=== PATIENT | female | born 1985 | race Caucasian/White ===

== ENCOUNTER 2020-02-19 12:18 | Emergency (ER) | payer MEDICAID, SELFPAY ==
[2020-02-19 12:20] VITALS: BP 143/86; PULSE 101; RESP 18; TEMP 36.4; O2SAT 96; BMI 40.1
--- NOTE | 2020-02-19 13:15 | RAD_ITS ---
STUDY: X-RAY - RIGHT KNEE REASON FOR EXAM: Female, 34 years old. right knee pain. heard pop and pain got worse TECHNIQUE: 4 view(s) of the knee. COMPARISON: None. FINDINGS: No acute fracture, dislocation or osseous destruction. Small quadriceps tendon enthesophyte. Minimal swelling. No significant joint effusion. RAD/Knee 4 or More Views IMPRESSION: Right knee acutely intact Minimal degenerative features Minimal swelling Electronically Signed: Jori Qureshi DO at 14:37 EDT Tel , Service support ,
--- NOTE | 2020-02-19 14:15 | ED.VISSUMM ---
- ER Visit Summary Date of Service: 02/19/20 Chief Complaint: Right knee pain History of Present Illness: The patient is a 34 F who presents with right knee pain that is been getting worse over the past 3 days. Patient states she felt a pop while she was walking up stairs. Patient states the pain is been getting progressively worse. Patient describes the pain as aching. Patient states nothing makes it better or worse. Patient denies any paresthesias or weakness. Patient denies any fevers or chills. Patient denies any other injuries. Patient states she has had surgery on both knees and an arthroscopy on her right knee in the past. Physical Examination: Vital signs are stable. Patient is afebrile. Patient is in no acute distress. Musculoskeletal exam reveals diffuse tenderness around the right knee. There is no effusion. There is no bony crepitance or step-off. There is no deformity noted. Range of motion was from 0 to 60 degrees without difficulty. There is pain with flexion past 60 degrees. There is no laxity appreciated. Varus and valgus stress tests were negative. Milad's test was negative. Pedal pulses are equal bilaterally. There are no sensory deficits noted. There is no calf tenderness or edema. Test Results: X-rays of the right knee were obtained. There is no acute fracture or dislocation. There is no effusion. These were interpreted by myself and the radiologist. Emergency Department Course and Treatment: Patient was instructed to ice and elevate the right knee. Patient was given a knee immobilizer. Patient was instructed to take Tylenol or ibuprofen as needed for pain. Patient was instructed to follow-up with her primary care physician in 5 to 7 days. Patient understood and was agreeable with the plan. All questions were answered. Disposition: Discharge home Impression: 1. Right knee sprain This note was generated with [employer] dictation software. It may contain incorrect words, spelling, and punctuation that were not noted in review of the chart prior to signing ED Disposition - Plan for ED Patient: Disposition: Home or Assisted Living Diagnosis: Right knee sprain Instructions: ED Sprain Knee Referrals: Alberto Meier MD [NON-STAFF] - 5-7 Days
[2020-02-19 14:56] VITALS: BP 140/62; PULSE 74; RESP 15; O2SAT 97
== END 2020-02-19 14:57 | disposition home or self-care (01) ==
PROVIDERS: Emergency Provider Emergency Medicine
DX: S83.91XA Sprain of unspecified site of right knee, initial encounter (principal); X58.XXXA Exposure to other specified factors, initial encounter; Y93.01 Activity, walking, marching and hiking; Y92.89 Other specified places as the place of occurrence of the external cause; Y99.9 Unspecified external cause status; I10 Essential (primary) hypertension; F17.210 Nicotine dependence, cigarettes, uncomplicated
CPT/HCPCS: 73564; 99282

== ENCOUNTER 2020-05-11 10:57 | Emergency (ER) | payer MEDICAID, SELFPAY ==
[2020-05-11 10:59] VITALS: BP 148/83; PULSE 78; RESP 17; TEMP 36.3; O2SAT 99; BMI 43.0
--- NOTE | 2020-05-11 11:29 | ED.VIS.GEN ---
History of Present Illness Chief Complaint: Abd Pain Narrative: 34-year-old female presenting with nausea/vomiting/diarrhea/chills and cough. Patient states her symptoms started last evening. 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 She states she does not have a significant health history. She is not having shortness of breath. She has been holding down some fluids and making urine. She is concerned about the profuse diarrhea. There is no black or blood in the stool. Past Medical History - Allergies and Home Meds Allergies/Adverse Reactions: Allergies amoxicillin [Amoxicillin] Allergy (Verified 05/11/20 10:59) Hives amoxicillin trihydrate [From Trimox] Allergy (Verified 05/11/20 10:59) Rash codeine Allergy (Verified 05/11/20 10:59) Itching Penicillins [PCN] Allergy (Verified 05/11/20 10:59) Hives phenazopyridine HCl [From Pyridium] Allergy (Verified 05/11/20 10:59) Other Sulfa (Sulfonamide Antibiotics) Allergy (Verified 05/11/20 10:59) Hives gabapentin [From Neurontin] Adverse Reaction (Verified 05/11/20 10:59) Vomiting hydrochlorothiazide Adverse Reaction (Verified 05/11/20 10:59) Hives Primary Care Physician: [facility],Out of [NON-STAFF] - Past Medical History: - - Noncontributory Surgical History: noncontributory Lives: Alone Smoking Status: Current every day smoker Alcohol: None Drugs: None Review of Systems General: Reports: Chills, Fever. Denies: Sweats Eyes: Denies: Visual changes - bilaterally, Diplopia ENT: Reports: Rhinorrhea, Sore throat Cardiovascular: Denies: Chest pain, Palpitations Respiratory: Reports: Cough. Denies: Dyspnea Gastrointestinal: Reports: Abdominal pain, Nausea, Vomiting, Diarrhea Genitourinary: Denies: Dysuria, Hematuria Musculoskeletal: Reports: Myalgias. Denies: Arthralgias, Neck pain Skin: Denies: Rash, Abscess Neurological: Denies: Headache, Weakness Physical Exam Vital Signs/Narrative: Vital Signs Temp Pulse Resp BP Pulse Ox 05/11/20 10:59 97.3 F L 78 17 148/83 H 99 Diagnostic/Tx/Re-eval - Medical Decision Making Patient presents with nausea, vomiting, diarrhea, cough and fever at home. Her vital signs are stable and she is afebrile. Her physical exam is benign. She is nontoxic-appearing. She was given Zofran in the emergency department and felt improved. She was tested for COVID?19. She is given home quarantine precautions as well as return precautions. She was amenable to this plan. Patient stable for discharge. Impression: 1. Vomiting 2. Diarrhea 3. Viral syndrome ED Disposition - Plan for ED Patient: Disposition: Home or Assisted Living Instructions: ED Viral Syndrome Prescriptions: Famotidine [Pepcid] 20 mg PO BID #14 tab Prescription Printed Ondansetron [Zofran Odt] 4 mg PO Q8H PRN PRN #20 tab PRN Reason: Nausea Prescription Printed Referrals: [facility],Out of [NON-STAFF] -
[2020-05-11 12:10] VITALS: BP 127/63; PULSE 74; RESP 16; O2SAT 98
[2020-05-11] MEDS: Ondansetron ODT 4 MG Tablet 8 MG PO (12:14)
== END 2020-05-11 12:14 | disposition home or self-care (01) ==
LOC: ED 11:38
PROVIDERS: Emergency Provider Student in an Organized Health Care Education/Training Program
DX: B34.9 Viral infection, unspecified (principal); R19.7 Diarrhea, unspecified; R11.2 Nausea with vomiting, unspecified; F17.200 Nicotine dependence, unspecified, uncomplicated; Z88.0 Allergy status to penicillin; Z88.2 Allergy status to sulfonamides; Z88.8 Allergy status to other drugs, medicaments and biological substances
CPT/HCPCS: 87635; 99283; C9803; U0003

== ENCOUNTER 2021-08-06 07:47 | Emergency (ER) | payer MEDICAID, SELFPAY ==
[2021-08-06 07:49] VITALS: BP 183/111; PULSE 89; RESP 16; TEMP 36.6; O2SAT 99; BMI 30.7
--- NOTE | 2021-08-06 08:00 | EDS_ITS ---
HPI History of Present Illness Chief Complaint: Lower Extremity Injury Informant: patient Occured/Mechanism Mechanism/Context: Yes injury Onset/Context/Timing Onset: Weeks Context: Sudden Onset Timing: Continuous Quality of Pain: Sharp Current Severity: Mild Maximum Severity: Moderate Associated Symptoms Associated Symptoms: Negative for Parasthesia, Weakness and Loss of Funtion Narrative Narrative: 36-year-old female history of left knee problems had a prior lateral release years ago. States she fell 2 to 3 weeks ago has had knee pain since t hat time. She bought an [id number] brace at a [employer] store and is just having more pain. Says it feels like it is popping and grinding. Denies any other complaints. Prior similar symptoms: Yes Recent Illness/Hospitalization: No PFSH PFSH Home Medications metoprolol tartrate 50 mg PO BID 02/19/20 [History Last Taken Unknown] famotidine 20 mg PO BID #14 tab 05/11/20 [Rx Last Taken Unknown] ondansetron 4 mg PO Q8H PRN PRN #20 tab 05/11/20 [Rx Last Taken Unknown] Allergy/AdvReac Type Severity Reaction Status Date / Time amoxicillin [Amoxicillin] Allergy Hives Verified 08/06/21 07:48 amoxicillin trihydrate Allergy Rash Verified 08/06/21 07:48 [From Trimox] codeine Allergy Itching Verified 08/06/21 07:48 Penicillins [PCN] Allergy Hives Verified 08/06/21 07:48 phenazopyridine HCl Allergy Other Verified 08/06/21 07:48 [From Pyridium] Sulfa (Sulfonamide Allergy Hives Verified 08/06/21 07:48 Antibiotics) doxycycline AdvReac Vomiting Verified 08/06/21 07:51 gabapentin [From Neurontin] AdvReac Vomiting Verified 08/06/21 07:48 hydrochlorothiazide AdvReac Hives Verified 08/06/21 07:48 titanium AdvReac Rash Verified 08/06/21 07:48 Social History Smoking Status: Current every day smoker tobacco type: cigarettes ROS ROS ED ROS Narrative Denies recent illness. Review of Systems ROS Unobtainable: Denies due to encephalopathy Constitutional Constitutional ED: Denies fever(s) Eyes Eyes: Denies change in vision ENT ENT ED: Denies ear pain Cardiovascular Cardiovascular: Denies chest pain Respiratory/Chest Respiratory/Chest: Denies dyspnea Gastrointestinal Gastrointestinal: Denies abdominal pain, nausea or vomiting Genitourinary Genitourinary ED: Denies dysuria Musculoskeletal Musculoskeletal: Denies myalgias Integumentary Denies rash Neurologic Neurologic: Denies headache(s) Psychiatric Psychiatric: Denies depression Endocrine Endocrinology: Denies polyuria Hematologic/Lymphatic Hematologic/Lymphatic: Denies easy bruising Allergic/Immunologic Allergic/Immunologic ED: Denies urticaria EXAM Physical Exam Narrative Exam Narrative: 36-year-old female no acute distress. Vital signs stable afebrile. HEENT exam unremarkable. Lungs are clear. Heart regular rate and rhythm no murmur. Rate about 90. Chest wall nontender. Abdomen soft nontender. Pelvic girdle intact. She is able to flex and extend both hips. Ankles and feet. Left knee is mildly swollen. Anteriorly tender on the inferior aspect. No gross bony deformity. No redness or warmth. There is some irritation to the skin from the brace. No cellulitis. ACL, PCL, MCL and LCL appear to be intact. She is tenderness along the medial aspect of her left knee. She is able do a full extension lift her leg off the bed extensor mechanism is intact. She can do flexion but has more discomfort with flexion but she can get up to almost 90 degrees. Const Vital Signs: 08/06/21 07:49 Temperature 97.8 F Temperature Source Temporal Pulse Rate 89 Respiratory Rate 16 Blood Pressure 183/111 H Blood Pressure Mean 135 Pulse Ox 99 Oxygen Delivery Method Room Air Positive well nourished, well developed and obese; Negative for cachectic, contractures or unkempt General Appearance ED: well developed and NAD; Negative for unkempt, cachectic or contractures Nutritional Appearance: obese; Negative for cachectic HEENT Reports moist mucous membranes normocephalic and atraumatic; Negative for trauma or tenderness Eyes PERRL Neck full ROM and supple Chest Wall inspection of chest normal and palpation of chest normal Resp normal respiratory effort, no retractions and clear to auscultation bilaterally Auscultation: Negative for rales, rhonchi or wheezes Cardio regular rate, regular rhythm, S1 normal heart sound, S2 normal heart sound and no murmurs GI non-tender, non-distended and no masses Auscultation: normoactive bowel sounds Palpation: soft; Negative for tender or guarding Back/Spine no CVA tenderness General Back: Negative for CVA tenderness Extremity Extremity Narrative: Left knee tenderness. Mild swelling. Redness from irritation from the brace. Ligaments are intact. No bony deformity. Full extension 180 degrees. Is able to do flexion but discomfort with flexion. Neuro oriented x3 Sensorium / Orientation: alert, oriented to person, oriented to place and oriented to time; Negative for orientation impaired, confused, lethargic or stuporous Motor Exam: strength 5/5 throughout Psych mental status grossly normal Appearance: Negative for unkempt Skin no wounds Lesions: no lesions Rashes: no rashes MDM MDM MDM Narrative Medical decision making narrative: X-ray left knee. And [place] for pain here. Repeat exam at 9:25 AM unchanged. Patient I went over x-ray results. She has a follow-up appointment with her orthopedic physician at [facility] September 01. He is done surgery on her other knee. Radiography Diagnostic Testing: Clinical Impression(s) from Imaging Studies Knee X-Ray 08/06/21 08:11 IMPRESSION: Degenerative arthrosis. Electronically Signed: Zafar Gibson MD at 8:33 EST , Service support , Left knee x-ray 4 views interpreted by myself and the radiologist. Shows no acute abnormality. There is joint space narrowing on the medial aspect of the left knee. Patient I went over her films. Discharge Plan Triage Chief Complaint: Lower Extremity Injury ED Provider: Matthew Kennedy Dx/Rx/DC Orders Clinical Impression: Knee sprain, Degenerative arthritis of left knee Instructions: ED Knee Sprain, ED Osteoarthritis Prescriptions: No Action metoprolol tartrate 50 MG tablet 50 mg PO BID RF: 0 famotidine 20 MG tablet 20 mg PO BID Qty: 14 RF: 0 ondansetron 4 MG tablet 4 mg PO Q8H PRN PRN (Reason: Nausea) Qty: 20 RF: 0 Referrals: BRITTANY DANIELS [Other] Activity Restrictions/Additional Instructions: Ice and elevate your left knee to decrease pain and swelling. Motrin and Tylenol for pain. Follow-up with your orthopedic physician stay with a scheduled appointment. Increase activity as tolerated. Disposition Disposition: Home, Self Care
[2021-08-06] MEDS: HYDROcodone Bitartrate/Apap 5/325 Tablet PO (08:03)
--- NOTE | 2021-08-06 08:11 | RAD_ITS ---
STUDY: X-RAY - LEFT KNEE REASON FOR EXAM: Female, 36 years old. Patient fell 3 weeks ago with continued pain and swelling. TECHNIQUE: 4 view(s) of the knee. COMPARISON: None. FINDINGS: Normal visualized distal femur. Normal visualized proximal tibia and fibula. Normal proximal tibiofibular articulation. There is mild degenerative arthrosis of the medial femorotibial compartment. Normal lateral femorotibial compartment. There is mild degenerative arthrosis of the patellofemoral articulation. The soft tissue structures are unremarkable. RAD/Knee 4 or More Views IMPRESSION: Degenerative arthrosis. Electronically Signed: Zafar Gibson MD at 8:33 EST , Service support ,
[2021-08-06] MEDS: COVID-19 VACC, MRNA(PFIZER)/PF 30 MCG/0.3 ML SYRINGE IM (10:17)
[2021-08-06 10:22] VITALS: BP 138/81; PULSE 79; RESP 16; O2SAT 98
== END 2021-08-06 10:38 | disposition home or self-care (01) ==
PROVIDERS: Emergency Provider Emergency Medicine
DX: S83.92XA Sprain of unspecified site of left knee, initial encounter (principal); M17.12 Unilateral primary osteoarthritis, left knee; F17.210 Nicotine dependence, cigarettes, uncomplicated; Z79.899 Other long term (current) drug therapy; E66.9 Obesity, unspecified; W19.XXXA Unspecified fall, initial encounter; Y92.9 Unspecified place or not applicable; Y99.9 Unspecified external cause status; Z23 Encounter for immunization
CPT/HCPCS: 73564; 91300; 99282

== ENCOUNTER 2021-12-08 15:07 | Emergency (ER) | payer OTHER, MEDICAID, SELFPAY ==
[2021-12-08 15:08] VITALS: BP 167/107; PULSE 88; RESP 14; TEMP 36.5; O2SAT 99; BMI 41.7
--- NOTE | 2021-12-08 15:44 | EDS_ITS ---
HPI HPI - GI History of Present Illness Chief Complaint: Abd Pain Narrative Narrative: 36-year-old female presenting with nausea and vomiting which started yesterday. She states that she started having vomiting episodes and then started having epigastric pain. Patient reports that she has a history of a renal mass on the left and states that she was recently told after an MRI that she had a pancreatic mass. She has a scheduled appointment for urology and for GI at [facility] on the . Patient does have a history of hematuria as well. It is presumed she has renal cell carcinoma. She initially had a consult and they were going to monitor this but she wanted a second opinion. This is why she is following up with [facility]. Patient has not had fever, chills. She denies diarrhea or constipation. She has no vaginal complaints. PFSH PFSH Medical History (Updated 12/08/21 @ 16:15 by Aislinn Quintero) GERD (gastroesophageal reflux disease) Home Medications metoprolol tartrate 50 mg PO BID 02/19/20 [History Last Taken Unknown] famotidine 20 mg PO BID #14 tab 05/11/20 [Rx Last Taken Unknown] ondansetron 4 mg PO Q8H PRN PRN #20 tab 05/11/20 [Rx Last Taken Unknown] pantoprazole [Protonix] 40 mg PO DAILY #30 tab 12/08/21 [Rx Last Taken Unknown] Allergy/AdvReac Type Severity Reaction Status Date / Time amoxicillin [Amoxicillin] Allergy Hives Verified 12/08/21 15:10 amoxicillin trihydrate Allergy Rash Verified 12/08/21 15:10 [From Trimox] codeine Allergy Itching Verified 12/08/21 15:10 Penicillins [PCN] Allergy Hives Verified 12/08/21 15:10 phenazopyridine HCl Allergy Other Verified 12/08/21 15:10 [From Pyridium] Sulfa (Sulfonamide Allergy Hives Verified 12/08/21 15:10 Antibiotics) doxycycline AdvReac Vomiting Verified 12/08/21 15:10 gabapentin [From Neurontin] AdvReac Vomiting Verified 12/08/21 15:10 hydrochlorothiazide AdvReac Hives Verified 12/08/21 15:10 titanium AdvReac Rash Verified 12/08/21 15:10 Surgical History (Updated 12/08/21 @ 16:54 by Aislinn Quintero) H/O: hysterectomy History of back surgery Social History Smoking Status: Current every day smoker tobacco type: cigarettes ROS ROS ED Constitutional Constitutional ED: Denies chills or fever(s) ENT ENT ED: Denies rhinorrhea or sore throat Cardiovascular Cardiovascular: Denies chest pain or palpitations Respiratory/Chest Respiratory/Chest: Denies cough or dyspnea Gastrointestinal Gastrointestinal: Reports abdominal pain, nausea and vomiting; Denies constipation or diarrhea Genitourinary Genitourinary ED: Reports hematuria; Denies dysuria Musculoskeletal Musculoskeletal: Denies arthralgias or myalgias Integumentary Denies rash Neurologic Neurologic: Denies headache(s), paresthesias or weakness Psychiatric Psychiatric: Denies anxiety or depression EXAM Physical Exam Const Vital Signs: 12/08/21 15:08 Temperature 97.7 F L Temperature Source Temporal Pulse Rate 88 Respiratory Rate 14 Blood Pressure 167/107 H Blood Pressure Mean 127 Pulse Ox 99 Oxygen Delivery Method Room Air Positive well nourished and obese General Appearance ED: NAD; Negative for pallor Nutritional Appearance: obese HEENT Reports moist mucous membranes normocephalic and atraumatic Eyes PERRL and EOMs intact bilaterally Resp normal respiratory effort and clear to auscultation bilaterally Cardio regular rate and regular rhythm GI Inspection: Negative for abdominal distention Palpation: tender epigastric Neuro CN's II-XII intact bilaterally and no sensory deficits noted Sensorium / Orientation: alert, oriented to person, oriented to place and oriented to time Motor Exam: strength 5/5 throughout Psych mental status grossly normal and thought process normal Skin General Skin Exam: Negative for jaundice or pallor MDM MDM MDM Narrative Medical decision making narrative: Patient given morphine and Zofran and did have improvement of her symptoms. I was able to review her MRI reading. Patient's had a 1.6 x 1.8 cm upper left renal mass concerning for renal cell carcinoma this was on 24 September. In the impression they do report cyst or IPMN recommended follow-up was once a year for 5 years. In the body of the read of the MRI they mention no masses. I obtained blood work and her CBC, CMP, lipase are all within normal limits. Coagulation studies are normal. Hemoglobin is actually higher than previous at 14.7. I suspect she likely had a Jaimee-Liu tear given the vomiting. Patient was typed and screened however she does not need blood transfusion. Urinalysis negative for infection. CT of the abdomen pelvis is read as no acute abdominal pathology and there are no interval changes. I discussed all the negative findings with the patient as well as the recent MRI. And trying to determine what was causing her vomiting she did report that the Protonix that was giving her via the IV she was out of. She reports eating spaghetti, lasagna, orange juice in the last 48 hours. It is possible this could be due to her acid reflux. She requests her prescription for Protonix. She has Zofran at home. I recommended that she still follow-up with her nephrology and GI consult on the . Patient is stable for discharge. Impression: 1. History of renal cell carcinoma 2. 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 Hematuria 4. Abdominal pain 5. Nausea/vomiting 6. GERD Lab Data Labs: Laboratory Results - last 24 hr 12/08/21 12/08/21 12/08/21 15:50 15:50 15:50 WBC 7.9 RBC 5.21 Hgb 14.7 Hct 46.6 MCV 89.4 MCH 28.2 MCHC 31.5 L RDW Std Deviation 49.0 H RDW Coeff of Darío 14.8 H Plt Count 364 MPV 10.2 Immature Gran % (Auto) 0.400 Neut % (Auto) 48.2 Lymph % (Auto) 38.5 [place] % (Auto) 10.1 H Eos % (Auto) 1.8 Baso % (Auto) 1.0 Absolute Neuts (auto) 3.8 Absolute Lymphs (auto) 3.02 Nucleated RBC % 0 PT 12.9 INR 1.0 Sodium 141 Potassium 3.9 Chloride 109 H Carbon Dioxide 29.0 Anion Gap 3 L BUN 17 Creatinine 0.92 Estim Creat Clear Calc 89.66 Est GFR (MDRD) Af Amer 87 Est GFR (MDRD) Non-Af 72 BUN/Creatinine Ratio 18.4 Glucose 83 Calcium 9.3 Lipase 146 Urine Color Urine Clarity Urine pH Ur Specific [place] Urine Protein Urine Glucose (UA) Urine Ketones Urine Occult Blood Urine Nitrite Urine Bilirubin Urine Urobilinogen Ur Leukocyte Esterase Blood Type Antibody Screen 12/08/21 12/08/21 15:50 17:15 WBC RBC Hgb Hct MCV MCH MCHC RDW Std Deviation RDW Coeff of [place] Plt Count MPV Immature Gran % (Auto) Neut % (Auto) Lymph % (Auto) [place] % (Auto) Eos % (Auto) Baso % (Auto) Absolute Neuts (auto) Absolute Lymphs (auto) Nucleated RBC % PT INR Sodium Potassium Chloride Carbon Dioxide Anion Gap BUN Creatinine Estim Creat Clear Calc Est GFR (MDRD) Af Amer Est GFR (MDRD) Non-Af BUN/Creatinine Ratio Glucose Calcium Lipase Urine Color Yellow Urine Clarity Clear Urine pH 7.0 Ur Specific [place] 1.010 Urine Protein 30 H Urine Glucose (UA) Normal Urine Ketones Negative Urine Occult Blood 10 H Urine Nitrite Negative Urine Bilirubin Negative Urine Urobilinogen Normal Ur Leukocyte Esterase Negative Blood Type A POSITIVE Antibody Screen NEGATIVE Radiography Diagnostic Testing: Clinical Impression(s) from Imaging Studies Abdomen/Pelvis CT 12/08/21 15:48 IMPRESSION: Fatty liver, no discrete lesion No free intraperitoneal fluid, air, or suspicious adenopathy No interval change Electronically Signed: Fahad Magallon MD at 17:09 EDT Reading Location ID and State: [address] [place] [address] , Service support , Discharge Plan Triage Chief Complaint: Abd Pain ED Provider: Brice Dunn Dx/Rx/DC Orders Instructions: ED Abdominal Pain Unkn Cause Fem, ED GERD (Adult) Prescriptions: New pantoprazole [Protonix] 40 mg tablet,delayed release (DR/EC) 40 mg PO DAILY Qty: 30 RF: 0 No Action metoprolol tartrate 50 MG tablet 50 mg PO BID RF: 0 famotidine 20 MG tablet 20 mg PO BID Qty: 14 RF: 0 ondansetron 4 MG tablet 4 mg PO Q8H PRN PRN (Reason: Nausea) Qty: 20 RF: 0 Referrals: BRITTANY DANIELS [Other] Disposition Disposition: Home, Self Care
--- NOTE | 2021-12-08 15:48 | CT_ITS ---
STUDY: CT ABDOMEN AND PELVIS WITH CONTRAST REASON FOR EXAM: Female, 36 years old. Epigastric pain RADIATION DOSAGE (If Supplied By Facility): CTDIvol = ( 20.55 ) mGy, DLP = ( 2439.42 ) mGycm TECHNIQUE: Transaxial images were obtained from the dome of the diaphragm to the symphysis pubis without oral contrast. IV 100mL Isovue-300 was administered. Sagittal and coronal images were reconstructed. Individualized dose optimization techniques were used for this CT. COMPARISON: 2013 FINDINGS: The visualized lung bases are unremarkable. The visualized portions of the heart are within normal limits. There is decreased attenuation of the liver consistent with steatosis. Normal gallbladder and extrahepatic biliary system. Normal spleen. Normal pancreas. Normal bilateral adrenal glands. Normal right kidney. Normal left kidney. Normal visualized stomach. Normal small intestine. Normal colon. There is non-visualization of the appendix. Normal abdominal aorta. Normal inferior vena cava. Normal retroperitoneum. Normal urinary bladder. Normal abdominal wall. Normal osseous structures. CT/Abdomen/Pelvis W IV Cont ONLY IMPRESSION: Fatty liver, no discrete lesion No free intraperitoneal fluid, air, or suspicious adenopathy No interval change Electronically Signed: Fahad Magallon MD at 17:09 EDT ,
[2021-12-08] MEDS: 0.9% Normal Saline 1,000 ML 1000 ML IV (16:07)
[2021-12-08] MEDS: Ondansetron 4 MG/2 ML Vial IV (16:07)
[2021-12-08] MEDS: Morphine 4 MG/ML Syringe IV (16:07)
[2021-12-08 16:10] LABS: Absolute Lymphocyte Count 3.02 X10^3/uL (0.83-4.51); Absolute Neutrophil Count 3.8 X10^3/uL (2.0-7.7); Basophil# 0.08 X10^3/uL; Eosinophil# 0.14 X10^3/uL; Eosinophils% 1.8 % (0-5); Hematocrit 46.6 % (37-47); Hemoglobin 14.7 g/dL (12.0-15.0); Lymphocyte # 3.02 X10^3/ul (0.83-4.51); Lymphocyte % 38.5 % (19-41); Mean Corp Hgb Conc 31.5 g/dL (32-36); Mean Corpuscular Hgb 28.2 pg (27.0-32.0); Mean Corpuscular Volume 89.4 fL (81-99); Mean Platelet Vol. 10.2 fl (6.2-12.0); Monocyte# 0.79 X10^3/uL; Monocyte% 10.1 % (0-10); NRBC Flagged by Analyzer 0 % (0-5); Neutrophil # 3.79 X10^3/uL (2.7-7.7); Neutrophil % 48.2 % (47-70); Platelet Count 364 K/mm3 (150-450); RBC Distribution Width CV 14.8 % (11.6-14.6); Red Blood Count 5.21 M/mm3 (4.2-5.4); White Blood Count 7.9 K/mm3 (4.4-11.0)
[2021-12-08 16:20] LABS: Anion Gap 3 (5-15); BUN 17 mg/dL (7-18); BUN/Creat Ratio 18.4 RATIO (10-20); Calcium,Total 9.3 mg/dL (8.5-10.1); Chloride 109 mmol/L (98-107); Creatinine, Serum 0.92 mg/dL (0.55-1.02); EST Glomerular Filtration Rate 72 mL/min (>60); Est Glom Filt Rate - Afr Amer 87 mL/min (>60); Estimated Creatinine Clearance 89.66 ml/min; Glucose 83 mg/dL (74-106); Lipase 146 U/L (73-393); Potassium 3.9 mmol/L (3.5-5.1); Sodium Level 141 mmol/L (136-145)
[2021-12-08 16:21] LABS: Prothrombin Time (Protime)PT. 12.9 SECONDS (11.7-14.9)
[2021-12-08 17:18] LABS: Mucous, Urine 0 SEEN /hpf (<or=2+); Red Blood Cells-Urine 0 SEEN /hpf (0-5); White Blood Cells 0 SEEN /hpf (0-5)
[2021-12-08 17:20] LABS: Color, Urine Yellow (Yellow); Glucose, Dipstick Normal (Normal); Ketone-Dipstick Negative (Negative); Leukocyte Esterase-Dipstick Negative /ul (Negative); Nitrite-Dipstick Negative (Negative); Occult Blood-Urine 10 /ul (Negative); Protein-Dipstick 30 mg/dl (Negative); Urine Bilirubin Dipstick Negative (Negative); Urine Clarity Clear (Clear); Urine Urobilinogen Normal (Normal)
[2021-12-08 17:44] LABS: Bacteria 1+ /hpf (None Seen); Squamous Epithelial Cells - UA 0-5 SEEN /hpf (5-10)
[2021-12-08 17:58] VITALS: BP 140/78; PULSE 97; RESP 16; O2SAT 99
== END 2021-12-08 18:04 | disposition home or self-care (01) ==
PROVIDERS: Emergency Provider Student in an Organized Health Care Education/Training Program; Visit Provider Student in an Organized Health Care Education/Training Program
DX: R10.13 Epigastric pain (principal); C64.9 Malignant neoplasm of unspecified kidney, except renal pelvis; F17.210 Nicotine dependence, cigarettes, uncomplicated
CPT/HCPCS: 74177; 80048; 81001; 83690; 85025; 85610; 86850; 86900; 86901; 99284; J7030; Q9967; A4216; J2405

== ENCOUNTER 2022-08-02 11:54 | Emergency (ER) | payer OTHER, MEDICAID, SELFPAY ==
[2022-08-02 11:55] VITALS: BP 184/100; PULSE 77; RESP 18; TEMP 37; O2SAT 98; BMI 41.3
--- NOTE | 2022-08-02 12:06 | EX.ED.VIS.EY ---
HPI <BRIGETTE Meier - Last Filed: 08/02/22 12:23> History of Present Illness Chief Complaint: Eye Problem Narrative Narrative: 37-year-old female noticed her left lower eyelid had a red bump 3 days ago. The discolored area enlarged and she noticed a red area on her eyeball as well. She denies trauma but then states maybe her cat jumped on her face in bed. She denies visual changes and does not wear contacts. She has been using piyk-tec-[id number] pinkeye drops without a change. PFSH <BRIGETTE Meier - Last Filed: 08/02/22 12:23> FORMERLY [facility], [facility] Medical History (Updated 08/02/22 @ 12:20 by BRIGETTE Meier) GERD (gastroesophageal reflux disease) Home Medications metoprolol tartrate 50 mg tablet 50 mg PO BID 02/19/20 [History Last Taken Unknown] famotidine 20 mg tablet 20 mg PO BID #14 tabs 05/11/20 [Rx Last Taken Unknown] ondansetron 4 mg disintegrating tablet 4 mg PO Q8H PRN PRN Nausea #20 tabs 05/11/20 [Rx Last Taken Unknown] pantoprazole 40 mg tablet,delayed release (Protonix) 40 mg PO DAILY #30 tabs 12/08/21 [Rx Last Taken Unknown] erythromycin 5 mg/gram (0.5 %) eye ointment 1 applic LEFT EYE Q6H 4 days #3.5 grams 08/02/22 [Rx Last Taken Unknown] Allergy/AdvReac Type Severity Reaction Status Date / Time amoxicillin [Amoxicillin] Allergy Hives Verified 08/02/22 11:55 amoxicillin trihydrate Allergy Rash Verified 08/02/22 11:55 [From Trimox] codeine Allergy Itching Verified 08/02/22 11:55 Penicillins [PCN] Allergy Hives Verified 08/02/22 11:55 phenazopyridine HCl Allergy Other Verified 08/02/22 11:55 [From Pyridium] Sulfa (Sulfonamide Allergy Hives Verified 08/02/22 11:55 Antibiotics) doxycycline AdvReac Vomiting Verified 08/02/22 11:55 gabapentin [From Neurontin] AdvReac Vomiting Verified 08/02/22 11:55 hydrochlorothiazide AdvReac Hives Verified 08/02/22 11:55 titanium AdvReac Rash Verified 08/02/22 11:55 Surgical History (Updated 12/08/21 @ 16:54 by Aislinn Quintero) H/O: hysterectomy History of back surgery Social History Smoking Status: Current every day smoker tobacco type: cigarettes ROS <BRIGETTE Meier - Last Filed: 08/02/22 12:23> ROS ED ROS Narrative Constitutional: Negative for fever, chills, malaise. Eyes: Negative for visual change. ENT: Negative for sore throat, ear pain, rhinorrhea. CVS: Negative for palpitations, chest pain, syncope. Respiratory: Negative for shortness of breath, cough. GI: Negative for abdominal pain, nausea, vomiting. : Negative for dysuria, hematuria or frequency. Neuro: Negative for headache, motor/sensory dysfunction. Skin: Negative for rash, abscess, or wound. Musc: Negative for joint pain, swelling, trauma. Heme: Negative for easy bruising, bleeding, lymphadenopathy. EXAM <BRIGETTE Meier Last Filed: 08/02/22 12:23> Physical Exam Narrative Exam Narrative: CONST: Patient sitting in no acute distress. EYES: PERRLA, EOMI, small left lateral subconjunctival hemorrhage, small styre left lower eyelid. There is also a small area of bruising of the left lower eyelid with purple and yellow stages of healing. Upper eyelid appears normal. No drainage or crusting. ENT: Normal inspection, moist mucous membranes. NECK: Normal inspection. RESP: No respiratory distress, CTAB. CVS: Regular rate and rhythm, no murmur, no gallop. SKIN: Color normal, no rash, warm, dry, intact. EXTREMITIES: Normal appearance, no pedal edema. NEURO: Oriented x4. PSYCH: Normal affect. Const Vital Signs: 08/02/22 11:55 Temperature 98.6 F Temperature Source Oral Pulse Rate 77 Respiratory Rate 18 Blood Pressure 184/100 H Blood Pressure Mean 128 Pulse Ox 98 Oxygen Delivery Method Room Air MDM <BRIGETTE Meier - Last Filed: 08/02/22 12:23> MDM MDM Narrative Medical decision making narrative: Patient was concerned about redness around her left eye. There is a small subconjunctival hemorrhage and what appears to be healing bruising of the left lower eyelid. There is also a small left lower internal stye. The globe otherwise looks normal, pupils reactive, vision intact. The only event she could recall it may be her cat jumped on her face in bed. I prescribed erythromycin ointment for the stye/to prevent blepharitis and recommended warm compresses. If any symptoms worsen follow-up with an acid tester or return to the ER. <Dr. Juni Lambert MD - Last Filed: 08/02/22 12:26> MDM Treatment and Re-Evaluation Narrative: I have personally performed a face to face assessment of the patient and have reviewed the REBECCA Note. I performed a substantive portion of the visit including all aspects of the following. My davison findings include: History: Patient states she has had some redness and almost bruising around her left eye. No change in vision. She has had some drainage or crusting at home but not now. She states it is possible her cat jumped on her face but she does not specifically recall this event. Exam: Patient does have a little bit of swelling and redness to the lower lid mostly laterally. There is a subconjunctival hemorrhage. I am not seeing crusting at this point. No pain with motion of the eye. However, when I pulled down on the lower lid I can see a stye laterally. Medical Decison Making: We will treat with warm compresses antibiotic ointments. We discussed reasons to return and follow-up. Discharge Plan Triage Chief Complaint: Eye Problem ED Midlevel Provider: Kathryn Dunbar ED Provider: Juni Lambert Dx/Rx/DC Orders Clinical Impression: Subconjunctival hemorrhage of left eye, Hordeolum externum left lower eyelid Instructions: ED Sty, ED Subconjunctival Hemorrhage Prescriptions: New erythromycin 5 mg/gram (0.5 %) ointment 1 applic LEFT EYE Q6H 4 Days Qty: 3.5 0RF Rx Instructions: whatever erythromycin ophthalmic that is in stock No Action metoprolol tartrate 50 MG tablet 50 mg PO BID famotidine 20 MG tablet 20 mg PO BID Qty: 14 0RF ondansetron 4 MG tablet 4 mg PO Q8H PRN PRN (Reason: Nausea) Qty: 20 0RF pantoprazole [Protonix] 40 mg tablet,delayed release (DR/EC) 40 mg PO DAILY Qty: 30 0RF Primary Care Provider: NOT,DEFINED Referrals: NOT,DEFINED [Primary Care Provider] - Activity Restrictions/Additional Instructions: Use the eye ointment and warm compresses to your eye several times per day. Disposition Disposition: Home, Self Care
== END 2022-08-02 12:31 | disposition home or self-care (01) ==
LOC: ED 12:28
PROVIDERS: Emergency Provider Emergency Medicine; Visit Provider Emergency Medicine
DX: H11.32 Conjunctival hemorrhage, left eye (principal); H00.026 Hordeolum internum left eye, unspecified eyelid; F17.210 Nicotine dependence, cigarettes, uncomplicated; H00.015 Hordeolum externum left lower eyelid; K21.9 Gastro-esophageal reflux disease without esophagitis
CPT/HCPCS: 99282

== ENCOUNTER 2022-10-08 05:17 | Emergency (ER) | payer OTHER, MEDICAID, SELFPAY ==
[2022-10-08 05:19] VITALS: BP 164/91; PULSE 73; RESP 15; TEMP 36.2; O2SAT 99; BMI 40.6
--- NOTE | 2022-10-08 05:33 | CT_ITS ---
INDICATION: Hypertensive Headache EXAMINATION: CT BRAIN - CT Head or Brain W/O Contrast Injection TECHNIQUE: Multiple axial images were obtained of the head without intravenous contrast. A radiation dose optimization technique was used for this scan. IV Contrast dosage and agent: None. COMPARISON: FINDINGS: BRAIN PARENCHYMA: No intra- or extra-axial hemorrhage. No evidence of acute infarct. No intracranial mass or mass effect. There is preservation of the jay/white matter interface. Posterior fossa structures are unremarkable. CSF SPACES: Appropriate for age. No hydrocephalus. Basal cisterns are patent. CALVARIUM, SKULL BASE, PARANASAL SINUSES AND MASTOID AIR CELLS: Clear. No discrete lytic or blastic abnormalities. ORBITS: Both globes, extraocular muscles, optic nerves and retrobulbar fat appear unremarkable. ASPECTS Score for Acute Strokes: 10 CT/Brain/Head without Contrast IMPRESSION: Negative Brain CT without contrast. Electronically Signed: Cassy oY MD at 6:45 EST ,
--- NOTE | 2022-10-08 05:33 | RAD_ITS ---
INDICATION: chest pain EXAMINATION/TECHNIQUE: X-RAY - XR Chest 1 View COMPARISON: None. FINDINGS: LINES/DEVICES: None. LUNGS: No consolidation, edema or effusion. No pneumothorax. MEDIASTINUM AND CARDIOVASCULAR STRUCTURES: Cardiac silhouette not enlarged. Central airways and mediastinal contour are unremarkable. BONES AND SOFT TISSUES: Unremarkable. RAD/Chest 1 View (Portable) IMPRESSION: No radiographic evidence of acute cardiopulmonary disease. Electronically Signed: Cassy Yo MD at 6:34 EST ,
--- NOTE | 2022-10-08 05:34 | EX.ED.DYSGE1 ---
HPI History of Present Illness Chief Complaint: Hypertension Narrative Narrative: 37-year-old female presents from working third and first shift with elevated blood pressure. She has past medical history of hypertension takes 75 mg of metoprolol tartrate twice a day. She states her blood pressure has been under control but she is under a lot of stressors at work. She noticed her blood pressure was over 200 and she has a bad headache.'s not thunderclap however. She also states she has family history of early coronary artery disease and is a smoker. She has left arm pain and was nauseated and vomited once. She is concerned because her blood pressure has been running high recently and she has symptoms of chest pains along with headache. She denies any exacerbating or alleviating factors. [facility] Medical History GERD (gastroesophageal reflux disease) Home Medications metoprolol tartrate 50 mg tablet 50 mg PO BID 02/19/20 [History Last Taken Unknown] famotidine 20 mg tablet 20 mg PO BID #14 tabs 05/11/20 [Rx Last Taken Unknown] ondansetron 4 mg disintegrating tablet 4 mg PO Q8H PRN PRN Nausea #20 tabs 05/11/20 [Rx Last Taken Unknown] pantoprazole 40 mg tablet,delayed release (Protonix) 40 mg PO DAILY #30 tabs 12/08/21 [Rx Last Taken Unknown] erythromycin 5 mg/gram (0.5 %) eye ointment 1 applic LEFT EYE Q6H 4 days #3.5 grams 08/02/22 [Rx Last Taken Unknown] Allergy/AdvReac Type Severity Reaction Status Date / Time amoxicillin [Amoxicillin] Allergy Hives Verified 10/08/22 05:28 amoxicillin trihydrate Allergy Rash Verified 10/08/22 05:28 [From Trimox] codeine Allergy Itching Verified 10/08/22 05:28 Penicillins [PCN] Allergy Hives Verified 10/08/22 05:28 phenazopyridine HCl Allergy Other Verified 10/08/22 05:28 [From Pyridium] Sulfa (Sulfonamide Allergy Hives Verified 10/08/22 05:28 Antibiotics) doxycycline AdvReac Vomiting Verified 10/08/22 05:28 gabapentin [From Neurontin] AdvReac Vomiting Verified 10/08/22 05:28 hydrochlorothiazide AdvReac Hives Verified 10/08/22 05:28 titanium AdvReac Rash Verified 10/08/22 05:28 Surgical History H/O: hysterectomy History of back surgery Social History Smoking Status: Current every day smoker tobacco type: cigarettes ROS ROS ED ROS Narrative Constitutional: No fever, no chills. HEENT: No sore throat. No neck pain. No loss of vision. No rhinorrhea. Cardiovascular: Positive chest pain. Positive left arm pain. No palpitations. No pedal edema. Respiratory: No cough, no shortness of breath. Abdominal: No abdominal pain. Positive nausea. 1 episode of vomiting. Genitourinary: No dysuria. No hematuria. Musculoskeletal: No myalgias. No arthralgias. Neurologic: Positive headache, no dizziness. No lightheadedness. Skin: No rash. No change in color. Psychiatric: No depression. No anxiety. Multiple stressors at work. EXAM Physical Exam Narrative Exam Narrative: Afebrile. Vital signs noted. HEENT: Normocephalic. Atraumatic. PERRL, EOMI. Neck soft and supple. No point tenderness or step off. Cardiovascular: Regular rate and rhythm. No murmurs, rubs, or gallops appreciated. Respiratory: No tachypnea. Lungs clear to auscultation bilaterally. Gastrointestinal: Abdomen soft, obese, nontender, with normoactive bowel sounds. No rebound or guarding. Neurological: Awake. Alert. Nonfocal, nonlateralizing. Skin: No rash. Normal color. No pallor. Musculoskeletal: No pedal edema. Full range of motion extremities. Const Vital Signs: 10/08/22 05:19 10/08/22 05:27 10/08/22 05:46 Temperature 97.1 F L Temperature Source Temporal Pulse Rate 73 75 Respiratory Rate 15 Respiratory Effort Normal Respiratory Pattern Normal Blood Pressure 164/91 H 189/113 H Blood Pressure Mean 115 Pulse Ox 99 Oxygen Delivery Method Room Air 10/08/22 05:45 Temperature Temperature Source Pulse Rate Respiratory Rate Respiratory Effort Respiratory Pattern Blood Pressure Blood Pressure Mean Pulse Ox Oxygen Delivery Method Room Air MDM MDM MDM Narrative Medical decision making narrative: Initially, her blood pressure was 164/91. It elevated to 191 systolic during history and physical taking. Comprehensive work-up was pursued. In the differential diagnosis is hypertensive intracranial hemorrhage for headache, along with acute coronary syndrome/STEMI/non-STEMI. She was administered aspirin. For elevated blood pressure as she states she is having chest and left arm pain she will be given nitroglycerin sublingually. I will obtain an EKG and laboratory work. I do feel that CT imaging of the brain is indicated as she states that she has a headache with elevated blood pressure reportedly over 200 systolic at work. Comprehensive work-up was pursued. EKG was obtained and interpreted by myself which demonstrates normal sinus rhythm at 77 bpm without ectopy or acute ST changes. No STEMI. I reviewed her laboratory work and her CBC shows a slightly elevated white count of 11.5 which I think is nonspecific, normal hemoglobin of 14.9, hematocrit 46.4. Platelet count normal at 434. BMP was obtained and reviewed and she has a normal sodium of 141 with normal potassium of 3.9, chloride slightly elevated at 109. Glucose 98 with high-sensitivity troponin 6. After aspirin and nitroglycerin, she continued to have a headache so she was given a gram of Tylenol orally. Her blood pressure is currently in the 160 range systolically. I reviewed her chest x-ray and on my interpretation I see no acute process, no congestive heart failure, pneumothorax, or pneumonia. I did review the CT imaging and do not see any evidence of an acute hemorrhage, however radiology report is currently pending. Her 2-hour troponin is currently pending. She will be signed out to the oncoming physician to check the second troponin. As long as this is within the delta 7 or less range, I do feel that she can be discharged to follow-up with her primary care provider. Her headache may be more from her stressors at work, also causing her blood pressure to rise. Currently, she is in stable condition. Lab Data Attestation: I reviewed the patient's lab results. Labs: Laboratory Results - last 24 hr 10/08/22 10/08/22 05:43 05:43 WBC 11.5 H RBC 5.29 Hgb 14.9 Hct 46.4 MCV 87.7 MCH 28.2 MCHC 32.1 RDW Std Deviation 44.3 H RDW Coeff of Darío 13.7 Plt Count 434 MPV 9.9 Immature Gran % (Auto) 0.300 Neut % (Auto) 63.4 Lymph % (Auto) 30.6 [place] % (Auto) 4.1 Eos % (Auto) 1.0 Baso % (Auto) 0.6 Absolute Neuts (auto) 7.3 Absolute Lymphs (auto) 3.53 Nucleated RBC % 0 Sodium 141 Potassium 3.9 Chloride 109 H Carbon Dioxide 25.0 Anion Gap 7 BUN 15 Creatinine 0.89 Estim Creat Clear Calc 91.77 Est GFR (MDRD) Af Amer 90 Est GFR (MDRD) Non-Af 75 BUN/Creatinine Ratio 16.8 Glucose 98 Calcium 9.5 Troponin I High Sens 6 Discharge Plan Triage Chief Complaint: Hypertension ED Provider: Feng Hoyos Dx/Rx/DC Orders Clinical Impression: Chest pain, Headache, Hypertension Instructions: ED Chest Pain, Uncertain Cause, ED Hypertension, Established, ED Pain, Acute, Uncertain Cause Prescriptions: No Action metoprolol tartrate 50 MG tablet 50 mg PO BID famotidine 20 MG tablet 20 mg PO BID Qty: 14 0RF ondansetron 4 MG tablet 4 mg PO Q8H PRN PRN (Reason: Nausea) Qty: 20 0RF pantoprazole [Protonix] 40 mg tablet,delayed release (DR/EC) 40 mg PO DAILY Qty: 30 0RF erythromycin 5 mg/gram (0.5 %) ointment 1 applic LEFT EYE Q6H 4 Days Qty: 3.5 0RF Rx Instructions: whatever erythromycin ophthalmic that is in stock Primary Care Provider: BRITTANY DANIELS [facility] [employer] Activity Restrictions/Additional Instructions: Your blood pressure was elevated. While it has become more acceptable, you may need to increase your medication. Talk to the physician or provider who takes care of your blood pressure with you. Return with increased pain, new or worsening symptoms. Disposition Disposition: Home, Self Care
[2022-10-08] MEDS: Aspirin 81 MG TAB.CHEW 324 MG PO (05:44)
[2022-10-08 05:46] VITALS: BP 189/113; PULSE 75
[2022-10-08] MEDS: Nitroglycerin SL (ED/IMG/CATH) 0.4 MG TABLET SL ×2 (05:46→06:37)
[2022-10-08 05:50] LABS: Absolute Lymphocyte Count 3.53 X10^3/uL (0.83-4.51); Absolute Neutrophil Count 7.3 X10^3/uL (2.0-7.7); Basophil# 0.07 X10^3/uL; Basophil% 0.6 % (0-1); Eosinophil# 0.11 X10^3/uL; Hematocrit 46.4 % (37-47); Hemoglobin 14.9 g/dL (12.0-15.0); Lymphocyte # 3.53 X10^3/ul (0.83-4.51); Lymphocyte % 30.6 % (19-41); Mean Corp Hgb Conc 32.1 g/dL (32-36); Mean Corpuscular Hgb 28.2 pg (27.0-32.0); Mean Corpuscular Volume 87.7 fL (81-99); Mean Platelet Vol. 9.9 fl (6.2-12.0); Monocyte# 0.47 X10^3/uL; Monocyte% 4.1 % (0-10); NRBC Flagged by Analyzer 0 % (0-5); Neutrophil # 7.33 X10^3/uL (2.7-7.7); Neutrophil % 63.4 % (47-70); Platelet Count 434 K/mm3 (150-450); RBC Distribution Width CV 13.7 % (11.6-14.6); RBC Distribution Width SD 44.3 fl (35.1-43.9); Red Blood Count 5.29 M/mm3 (4.2-5.4); White Blood Count 11.5 K/mm3 (4.4-11.0)
[2022-10-08 06:07] LABS: Anion Gap 7 (5-15); BUN 15 mg/dL (7-18); BUN/Creat Ratio 16.8 RATIO (10-20); Calcium,Total 9.5 mg/dL (8.5-10.1); Chloride 109 mmol/L (98-107); Creatinine, Serum 0.89 mg/dL (0.55-1.02); EST Glomerular Filtration Rate 75 mL/min (>60); Est Glom Filt Rate - Afr Amer 90 mL/min (>60); Estimated Creatinine Clearance 91.77 ml/min; Glucose 98 mg/dL (74-106); Potassium 3.9 mmol/L (3.5-5.1); Sodium Level 141 mmol/L (136-145); Troponin-I HS (w/2H Reflex) 6 pg/mL (3.0-54.0)
[2022-10-08 06:37] VITALS: BP 168/106; PULSE 73
[2022-10-08] MEDS: Acetaminophen 500 MG Tablet 1000 MG PO (06:40)
[2022-10-08 07:47] LABS: Reflex Troponin-HS? (from REC) Y
[2022-10-08 07:54] VITALS: BP 166/98; PULSE 71; RESP 15; O2SAT 95
[2022-10-08 08:08] VITALS: BP 151/90
[2022-10-08 08:14] LABS: Troponin-I HS 6 pg/mL (3.0-54.0)
[2022-10-08] MEDS: Lisinopril 10 MG Tablet PO (08:40)
== END 2022-10-08 08:45 | disposition home or self-care (01) ==
PROVIDERS: Emergency Provider Emergency Medicine; Visit Provider Emergency Medicine
DX: R07.9 Chest pain, unspecified (principal); R51.9 Headache, unspecified; F17.210 Nicotine dependence, cigarettes, uncomplicated; I10 Essential (primary) hypertension; M79.602 Pain in left arm; Z56.6 Other physical and mental strain related to work; K21.9 Gastro-esophageal reflux disease without esophagitis
CPT/HCPCS: 70450; 71045; 80048; 84484; 85025; 93005; 99285; A4216

== ENCOUNTER 2022-10-12 12:30 | Emergency (ER) | payer OTHER, MEDICAID, SELFPAY ==
[2022-10-12 12:31] VITALS: BP 154/109; PULSE 74; RESP 16; TEMP 36.4; O2SAT 98; BMI 41.1
--- NOTE | 2022-10-12 13:05 | CT_ITS ---
STUDY: CT BRAIN WITHOUT CONTRAST REASON FOR EXAM: Female, 37 years old. Severe headache, hypertension RADIATION DOSAGE (If Supplied By Facility): CTDIvol = ( 44.99 ) mGy, DLP = ( 829.85 ) mGycm TECHNIQUE: Transaxial CT imaging of the brain was performed without administration of intravenous contrast material. Individualized dose optimization techniques were used for this CT. COMPARISON: Comparison is made with prior study dated 10/08/2022. FINDINGS: Normal soft tissue structures. Normal calvarium. Normal size ventricles and extra-axial spaces for the patient''s age. Normal white matter tracts of the cerebral hemispheres. Normal basal ganglia and thalami. Normal brainstem. Normal cerebellum. There is no intracranial hemorrhage. There are no findings of an acute ischemic infarction. Small air-fluid level in the left sphenoid sinus. CT/Brain/Head without Contrast IMPRESSION: Normal unenhanced CT scan of the brain. Small air-fluid level in the left sphenoid sinus. Electronically Signed: Zafar Gibson MD at 13:58 EST ,
--- NOTE | 2022-10-12 13:08 | EDS_ITS ---
HPI History of Present Illness Chief Complaint: Hypertension Detail of Chief Complaint: Hypertension and severe headache Informant: patient Onset/Context/Timing Onset: Today Context: Sudden Onset Timing: Continuous Quality: Global headache and blood pressure of 192/110 Location: [employer] and cardiovascular Current Severity: Mild Maximum Severity: Severe Worsened by: Nothing Relieved by: Nothing Associated Symptoms Associated Symptoms: None Narrative Narrative: Patient is a 37-year-old woman with history of hypertension for 2.5 years. She was seen on October 07. She presented with high blood pressure and chest pain. Her work-up was unremarkable. She was on metoprolol at the time. Lisinopril was added. She was not started on hydrochlorothiazide because her reported allergy, hives. Patient presents because abrupt onset of headache. When she checked her blood pressure was 192/110. She denies double vision, blurred vision loss of vision. Has ringing in ears decreased hearing. Denies trouble with speech or swallowing. Denies problems with balance or coordination. She denies paresthesia, anesthesia or motor weakness upper or lower extremities. She denies chest discomfort or back pain. She denies nausea, vomit or diarrhea. Prior similar symptoms: Yes Recent Illness/Hospitalization: Yes [facility] Medical History (Updated 10/12/22 @ 14:[address] Chava Oneil MD) GERD (gastroesophageal reflux disease) HTN (hypertension) Home Medications metoprolol tartrate 50 mg tablet 50 mg PO BID 02/19/20 [History Last Taken Unknown] famotidine 20 mg tablet 20 mg PO BID #14 tabs 05/11/20 [Rx Last Taken Unknown] ondansetron 4 mg disintegrating tablet 4 mg PO Q8H PRN PRN Nausea #20 tabs 05/11/20 [Rx Last Taken Unknown] pantoprazole 40 mg tablet,delayed release (Protonix) 40 mg PO DAILY #30 tabs 12/08/21 [Rx Last Taken Unknown] erythromycin 5 mg/gram (0.5 %) eye ointment 1 applic LEFT EYE Q6H 4 days #3.5 grams 08/02/22 [Rx Last Taken Unknown] lisinopril 10 mg tablet 10 mg PO DAILY #30 tabs 10/08/22 [Rx Last Taken Unknown] levofloxacin 500 mg tablet 500 mg PO DAILY #10 tabs 10/12/22 [Rx Last Taken Unknown] Allergy/AdvReac Type Severity Reaction Status Date / Time amoxicillin [Amoxicillin] Allergy Hives Verified 10/12/22 12:33 amoxicillin trihydrate Allergy Rash Verified 10/12/22 12:33 [From Trimox] codeine Allergy Itching Verified 10/12/22 12:33 Penicillins [PCN] Allergy Hives Verified 10/12/22 12:33 phenazopyridine HCl Allergy Other Verified 10/12/22 12:33 [From Pyridium] Sulfa (Sulfonamide Allergy Hives Verified 10/12/22 12:33 Antibiotics) doxycycline AdvReac Vomiting Verified 10/12/22 12:33 gabapentin [From Neurontin] AdvReac Vomiting Verified 10/12/22 12:33 hydrochlorothiazide AdvReac Hives Verified 10/12/22 12:33 titanium AdvReac Rash Verified 10/12/22 12:33 Surgical History H/O: hysterectomy History of back surgery Social History (Updated 10/12/22 @ 13:[address] Chava Oneil MD) Smoking Status: Current every day smoker tobacco type: cigarettes substance use type: does not use ROS ROS ED Constitutional Constitutional ED: Denies chills, fever(s), subjective, sweats or weight loss Eyes Eyes: Denies blurry vision, change in vision or diplopia ENT ENT ED: Denies ear pain, rhinorrhea or sore throat Cardiovascular Cardiovascular: Denies chest pain, orthopnea, palpitations, paroxysmal nocturnal dyspnea or racing heartbeat Respiratory/Chest Respiratory/Chest: Denies cough, dyspnea, dyspnea on exertion, orthopnea or paroxysmal nocturnal dyspnea Gastrointestinal Gastrointestinal: Denies abdominal pain, nausea or vomiting Musculoskeletal Musculoskeletal: Denies arthralgias, back pain, myalgias or neck pain Integumentary Denies rash Neurologic Neurologic: Reports headache(s) and other Details: Additional detail HPI narrative ; Denies paresthesias or weakness Psychiatric Psychiatric: Denies anxiety Hematologic/Lymphatic Hematologic/Lymphatic: Reports systems reviewed and no addt'l complaints, except as documented EXAM Physical Exam Const Vital Signs: 10/12/22 12:31 10/12/22 13:51 Temperature 97.5 F L Temperature Source Temporal Pulse Rate 74 Respiratory Rate 16 Respiratory Effort Normal Non-Labored Blood Pressure 154/109 H Blood Pressure Mean 124 Pulse Ox 98 Oxygen Delivery Method Room Air Positive well nourished, well developed and obese General Appearance ED: well developed and NAD; Negative for cyanotic, diaphoretic or pallor Nutritional Appearance: obese HEENT Reports moist mucous membranes HEENT Narrative: Head is atraumatic normocephalic. Ears normal. Nares patent. Uvula midline. No deviation of tongue with protrusion. Eyes PERRL and EOMs intact bilaterally Eyes Narrative: There is no nystagmus. Endoscopic exam reveals no papilledema. General Eye ED: Negative for pale conjunctiva or scleral icterus Neck no lymphadenopathy, supple and no JVD Chest Wall inspection of chest normal Resp normal respiratory effort and clear to auscultation bilaterally Cardio regular rate, regular rhythm, S1 normal heart sound, S2 normal heart sound and no murmurs GI normal to inspection, nondistended, normoactive bowel sounds, non-tender and non-distended; Negative for hepatosplenomegaly Back/Spine Cervical Spine: Negative for cervical spine tenderness Thoracic Spine / Upper Back: Negative for thoracic spinal tenderness Extremity normal to inspection Extremity Narrative: Pulses are symmetric right to left and upper and lower. Neuro oriented x3, CN's II-XII intact bilaterally and no sensory deficits noted Sensorium / Orientation: alert Psych mental status grossly normal Skin no rashes or lesions noted, no wounds and skin turgor normal General Skin Exam: Negative for jaundice or pallor MDM MDM MDM Narrative Medical decision making narrative: Outside records were obtained. The report was authored by nurse practitioner Marlee. Record from most recent ER visit were reviewed as well. With abrupt onset set of headache blood pressure 192/[address] to rule out intraparenchymal bleed or subarachnoid hemorrhage. Since she presented within 6 hours of the headache will not need to perform LP to rule out subarachnoid hemorrhage. Patient's most recent blood pressure is 154/109. Based on review of most recent lab studies there is no evidence of endorgan dysfunction. Radiography Diagnostic Testing: Clinical Impression(s) from Imaging Studies Brain CT 10/12/22 13:05 IMPRESSION: Normal unenhanced CT scan of the brain. Small air-fluid level in the left sphenoid sinus. Electronically Signed: Zafar Gibson MD at 13:58 EST , Agree patient does have air-fluid level in the left sphenoid sinus. Since she has a vertex headache we will treat for sphenoid sinusitis with doxycycline in light of her multiple antibiotic allergies to penicillin, sulfa and reports vomiting with doxycycline and will not take doxycycline. Therefore we will treat with levofloxacin. Patient's blood pressure did improve without treatment. Rhythm Strip Rhythm Strip: Sinus Rhythm Rate: 74 Ectopy: None Discharge Plan Triage Chief Complaint: Hypertension ED Provider: Chava Oneil Dx/Rx/DC Orders Clinical Impression: Acute non-recurrent sphenoidal sinusitis, Accelerated essential hypertension, History of hiatal hernia Instructions: ED Hypertension, Established, ED Sinusitis (Antibiotic Treatment) Prescriptions: New levofloxacin [levofloxacin] 500 mg tablet 500 mg PO DAILY Qty: 10 0RF No Action metoprolol tartrate 50 MG tablet 50 mg PO BID famotidine 20 MG tablet 20 mg PO BID Qty: 14 0RF ondansetron 4 MG tablet 4 mg PO Q8H PRN PRN (Reason: Nausea) Qty: 20 0RF pantoprazole [Protonix] 40 mg tablet,delayed release (DR/EC) 40 mg PO DAILY Qty: 30 0RF erythromycin 5 mg/gram (0.5 %) ointment 1 applic LEFT EYE Q6H 4 Days Qty: 3.5 0RF Rx Instructions: whatever erythromycin ophthalmic that is in stock lisinopril 10 mg tablet 10 mg PO DAILY Qty: 30 0RF Primary Care Provider: Care Physician,No Primary Referrals: [facility] Doctor,Out of [Non-Staff] - 1-2 Weeks Activity Restrictions/Additional Instructions: If you have a blood pressure reading greater than 180 take an additional dose of lisinopril. If your pressure remains elevated after 1 to 2 hours then seek medical attention or if you have any symptoms that concern you for stroke. Take antibiotics until gone Disposition Disposition: Home, Self Care
[2022-10-12] MEDS: levoFLOXacin 750 MG Tablet PO (14:38)
== END 2022-10-12 14:46 | disposition home or self-care (01) ==
PROVIDERS: Emergency Provider Emergency Medicine; Visit Provider Emergency Medicine
DX: J01.30 Acute sphenoidal sinusitis, unspecified (principal); I10 Essential (primary) hypertension; F17.210 Nicotine dependence, cigarettes, uncomplicated; H93.19 Tinnitus, unspecified ear; E66.9 Obesity, unspecified; K21.9 Gastro-esophageal reflux disease without esophagitis
CPT/HCPCS: 70450; 99285; A4216

== ENCOUNTER 2022-10-28 17:54 | Emergency (ER) | payer OTHER, MEDICAID, SELFPAY ==
[2022-10-28 17:55] VITALS: BP 171/136; PULSE 106; RESP 15; TEMP 37.4; O2SAT 96; BMI 40.1
[2022-10-28 18:07] VITALS: BP 171/136; PULSE 106; RESP 15; TEMP 37.4; O2SAT 96
--- NOTE | 2022-10-28 18:42 | CT_ITS ---
EXAMINATION : Head CT w/out contrast HISTORY : Headache COMPARISON : 10/12/2022. TECHNIQUE : Multiple contiguous axial images were obtained from the skull base to the vertex without intravenous contrast. A radiation dose optimization technique was used for this scan. FINDINGS : The ventricles and sulci are normal in size. There is no evidence for acute intracranial hemorrhage, mass effect, or midline shift. There is no extra-axial fluid collection. There is normal isaac-white differentiation, without CT evidence of acute ischemia or infarct. The skull base and calvarium are unremarkable. The orbits are unremarkable. The paranasal sinuses are clear. The mastoid air cells are well-aerated. The soft tissues are unremarkable. CT/Brain/Head without Contrast IMPRESSION: No acute intracranial abnormality. Electronically Signed: Marc Teresa MD at 19:29 EST ,
[2022-10-28 18:56] LABS: Absolute Lymphocyte Count 5.43 X10^3/uL (0.83-4.51); Absolute Neutrophil Count 11.4 X10^3/uL (2.0-7.7); Basophil% 0.5 % (0-1); Eosinophils% 1.1 % (0-5); Hematocrit 47.4 % (37-47); Lymphocyte # 5.43 X10^3/ul (0.83-4.51); Lymphocyte % 29.7 % (19-41); Mean Corp Hgb Conc 31.6 g/dL (32-36); Mean Corpuscular Hgb 27.9 pg (27.0-32.0); Mean Corpuscular Volume 88.3 fL (81-99); Mean Platelet Vol. 10.3 fl (6.2-12.0); NRBC Flagged by Analyzer 0 % (0-5); Neutrophil # 11.35 X10^3/uL (2.7-7.7); Neutrophil % 62.2 % (47-70); POSITIVE DIFFERENTIAL YES; Platelet Count 396 K/mm3 (150-450); RBC Distribution Width CV 14.4 % (11.6-14.6); Red Blood Count 5.37 M/mm3 (4.2-5.4); White Blood Count 18.3 K/mm3 (4.4-11.0)
[2022-10-28] MEDS: DiphenhydrAMINE 50 MG/ML Syringe 25 MG IV (18:56)
[2022-10-28] MEDS: Metoclopramide 10 MG/2 ML Vial IV (18:57)
[2022-10-28 19:00] LABS: Differential Indicated SCAN CRITERIA MET
[2022-10-28 19:12] LABS: Color, Urine Yellow (Yellow); Glucose, Dipstick Normal (Normal); Ketone-Dipstick Negative (Negative); Leukocyte Esterase-Dipstick 25 /ul (Negative); Nitrite-Dipstick Negative (Negative); Occult Blood-Urine 10 /ul (Negative); Protein-Dipstick 100 mg/dl (Negative); Specific Gravity, Urine 1.025 (1.002-1.030); Urine Bilirubin Dipstick Negative (Negative); Urine Clarity Clear (Clear); Urine Urobilinogen Normal (Normal)
[2022-10-28 19:13] LABS: Mucous, Urine 0 SEEN /hpf (<or=2+); Red Blood Cells-Urine 0 SEEN /hpf (0-5)
[2022-10-28 19:13] LABS: ALB/GLOB Ratio 0.8 RATIO (0.9-2.4); AST(SGOT) 14 U/L (15-37); Alanine Aminotransfer ALT/SGPT 34 U/L (13-56); Albumin, Serum 3.7 g/dL (3.2-5.0); Alkaline Phosphatase 100 U/L (45-117); Anion Gap 4 (5-15); BUN 17 mg/dL (7-18); BUN/Creat Ratio 17.7 RATIO (10-20); Calcium,Total 9.7 mg/dL (8.5-10.1); Chloride 110 mmol/L (98-107); Creatinine, Serum 0.96 mg/dL (0.55-1.02); EST Glomerular Filtration Rate 69 mL/min (>60); Est Glom Filt Rate - Afr Amer 83 mL/min (>60); Estimated Creatinine Clearance 85.08 ml/min; Globulin 4.4 g/dL (2.2-4.2); Glucose 98 mg/dL (74-106); Potassium 3.7 mmol/L (3.5-5.1); Protein, Total 8.1 g/dL (6.4-8.2); Sodium Level 142 mmol/L (136-145)
[2022-10-28 19:15] LABS: Differential Comment SCANNED
--- NOTE | 2022-10-28 19:20 | RAD_ITS ---
INDICATION: Cough EXAMINATION/TECHNIQUE: X-RAY - XR Chest 2 Views COMPARISON: 10/08/2022. FINDINGS: The lungs are clear. The cardiomediastinal silhouette is unremarkable. No pleural effusion or pneumothorax. No acute osseous abnormalities. RAD/Chest PA and Lateral IMPRESSION: No acute radiographic abnormalities. Electronically Signed: Marc Teresa MD at 19:30 EST ,
[2022-10-28 19:27] LABS: Bacteria RARE /hpf (None Seen); Squamous Epithelial Cells - UA 0-5 SEEN /hpf (5-10); White Blood Cells 0-5 SEEN /hpf (0-5)
--- NOTE | 2022-10-28 21:00 | EX.ED.DYSGE1 ---
HPI History of Present Illness Chief Complaint: General Illness Informant: patient Onset/Context/Timing Onset: Today Context: Sudden Onset Timing: Continuous Quality: Pressure Location: Head Worsened by: Laying flat Relieved by: Nothing Narrative Narrative: Patient presents with fever, headache, and elevated blood pressure that became worse today. Patient states her temperature at home was 101.7. Patient states she took Tylenol prior to arrival. Patient states she has a history of prior sinusitis from multiple sinus surgeries. Patient states her pain feels like a pressure all over her head. Patient states it is worse whenever she lays flat. Patient states she recently finished a course of Levaquin and a course of steroids. Patient admits to some rhinorrhea. Patient denies any chest pain or shortness of breath. Patient denies any cough. [facility] Medical History (Updated 10/28/22 @ 21:[address] Jori Carlos, ) GERD (gastroesophageal reflux disease) HTN (hypertension) Home Medications metoprolol tartrate 50 mg tablet 50 mg PO BID 02/19/20 [History Last Taken Unknown] famotidine 20 mg tablet 20 mg PO BID #14 tabs 05/11/20 [Rx Last Taken Unknown] ondansetron 4 mg disintegrating tablet 4 mg PO Q8H PRN PRN Nausea #20 tabs 05/11/20 [Rx Last Taken Unknown] pantoprazole 40 mg tablet,delayed release (Protonix) 40 mg PO DAILY #30 tabs 12/08/21 [Rx Last Taken Unknown] erythromycin 5 mg/gram (0.5 %) eye ointment 1 applic LEFT EYE Q6H 4 days #3.5 grams 08/02/22 [Rx Last Taken Unknown] lisinopril 10 mg tablet 10 mg PO DAILY #30 tabs 10/08/22 [Rx Last Taken Unknown] levofloxacin 500 mg tablet 500 mg PO DAILY #10 tabs 10/12/22 [Rx Last Taken Unknown] Allergy/AdvReac Type Severity Reaction Status Date / Time amoxicillin [Amoxicillin] Allergy Hives Verified 10/28/22 17:59 amoxicillin trihydrate Allergy Rash Verified 10/28/22 17:59 [From Trimox] codeine Allergy Itching Verified 10/28/22 17:59 Penicillins [PCN] Allergy Hives Verified 10/28/22 17:59 phenazopyridine HCl Allergy Other Verified 10/28/22 17:59 [From Pyridium] Sulfa (Sulfonamide Allergy Hives Verified 10/28/22 17:59 Antibiotics) doxycycline AdvReac Vomiting Verified 10/28/22 17:59 gabapentin [From Neurontin] AdvReac Vomiting Verified 10/28/22 17:59 hydrochlorothiazide AdvReac Hives Verified 10/28/22 17:59 titanium AdvReac Rash Verified 10/28/22 17:59 Surgical History (Updated 10/28/22 @ 21:[address] Jori Carlos DO) H/O: hysterectomy History of back surgery Hx of appendectomy Hx of knee surgery Hx of sinus surgery Social History Smoking Status: Current every day smoker tobacco type: cigarettes substance use type: does not use ROS ROS ED Constitutional Constitutional ED: Reports fever(s); Denies chills Eyes Eyes: Reports change in vision; Denies blurry vision ENT ENT ED: Reports rhinorrhea; Denies sore throat Cardiovascular Cardiovascular: Denies chest pain or palpitations Respiratory/Chest Respiratory/Chest: Denies cough or dyspnea Gastrointestinal Gastrointestinal: Denies nausea or vomiting Genitourinary Genitourinary ED: Denies dysuria or hematuria Musculoskeletal Musculoskeletal: Denies back pain or neck pain Integumentary Denies abscess or rash Neurologic Neurologic: Reports headache(s); Denies weakness Allergic/Immunologic Allergic/Immunologic ED: Denies mouth swelling or urticaria EXAM Physical Exam Const Vital Signs: 10/28/22 17:55 10/28/22 18:07 10/28/22 18:48 Temperature 99.4 F H 99.4 F H Temperature Source Temporal Temporal Pulse Rate 106 H 106 H Respiratory Rate 15 15 Respiratory Effort Normal Respiratory Pattern Normal Blood Pressure 171/136 H 171/136 H Blood Pressure Mean 147 147 Pulse Ox 96 96 Oxygen Delivery Method Room Air Room Air Positive well nourished, well developed and obese General Appearance ED: well developed and NAD Nutritional Appearance: obese HEENT Reports moist mucous membranes Neck supple and no JVD Resp normal respiratory effort and clear to auscultation bilaterally Cardio regular rate and regular rhythm GI normal to inspection, nondistended, normoactive bowel sounds and non-tender Palpation: soft Back/Spine Cervical Spine: Negative for cervical spine tenderness Extremity normal to inspection Neuro oriented x3, CN's II-XII intact bilaterally and no sensory deficits noted Sensorium / Orientation: alert Motor Exam: strength 5/5 throughout Psych mental status grossly normal Skin no rashes or lesions noted MDM MDM MDM Narrative Medical decision making narrative: Differential diagnosis includes sinusitis, viral illness, urinary tract infection, bronchitis, pneumonia, and migraine headache. CT scan of the brain will be obtained to assess for sinusitis and intracranial abnormality. CBC will be obtained to assess for leukocytosis and anemia. Comprehensive metabolic profile will be obtained to assess for electrolyte abnormality, renal function, and hepatic function. Urinalysis will be obtained to assess for urinary tract infection and hematuria. Chest x-ray will be obtained to assess for pneumonia. COVID-19 rapid antigen will be obtained to assess for COVID infection. Influenza A and influenza B antigens will be obtained to assess for influenza infection. Lab Data Attestation: I reviewed the patient's lab results. Lab results narrative: CBC was reviewed. There is a leukocytosis of 18.3. Patient recently completed a course of steroids and this is likely from that. Comprehensive metabolic profile was reviewed and was within normal limits. Urinalysis was reviewed. There is no evidence of urinary tract infection or hematuria. Labs: Laboratory Results - last 24 hr 10/28/22 10/28/22 10/28/22 18:30 18:30 19:00 WBC 18.3 H RBC 5.37 Hgb 15.0 Hct 47.4 H MCV 88.3 MCH 27.9 MCHC 31.6 L RDW Std Deviation 46.0 H RDW Coeff of Darío 14.4 Plt Count 396 MPV 10.3 Immature Gran % (Auto) 0.500 Neut % (Auto) 62.2 Lymph % (Auto) 29.7 [place] % (Auto) 6.0 Eos % (Auto) 1.1 Baso % (Auto) 0.5 Absolute Neuts (auto) 11.4 H Absolute Lymphs (auto) 5.43 H Nucleated RBC % 0 Differential Comment SCANNED Sodium 142 Potassium 3.7 Chloride 110 H Carbon Dioxide 28.0 Anion Gap 4 L BUN 17 Creatinine 0.96 Estim Creat Clear Calc 85.08 Est GFR (MDRD) Af Amer 83 Est GFR (MDRD) Non-Af 69 BUN/Creatinine Ratio 17.7 Glucose 98 Calcium 9.7 Total Bilirubin 0.30 AST 14 L ALT 34 Alkaline Phosphatase 100 Total Protein 8.1 Albumin 3.7 Globulin 4.4 H Albumin/Globulin Ratio 0.8 L Urine Color Yellow Urine Clarity Clear Urine pH 5.0 Ur Specific [place] 1.025 Urine Protein 100 H Urine Glucose (UA) Normal Urine Ketones Negative Urine Occult Blood 10 H Urine Nitrite Negative Urine Bilirubin Negative Urine Urobilinogen Normal Ur Leukocyte Esterase 25 H Urine RBC 0 SEEN Urine WBC 0-5 SEEN Ur Squamous Epith Cells 0-5 SEEN Urine Bacteria RARE Urine Mucus 0 SEEN Radiography Diagnostic Testing: Clinical Impression(s) from Imaging Studies Brain CT 10/28/22 18:42 IMPRESSION: No acute intracranial abnormality. Electronically Signed: Marc Teresa MD at 19:29 EST , Chest X-Ray 10/28/22 19:20 IMPRESSION: No acute radiographic abnormalities. Electronically Signed: Marc Teresa MD at 19:30 EST , PA and lateral chest x-ray was obtained. There are 2 views. On my independent interpretation, lung ramirez are clear. There is normal cardiac silhouette. Bony thorax is normal. There is no acute process noted. Radiologist also interpreted the x-ray and agrees. CT scan of the brain was obtained. There is no acute intracranial abnormality. This was interpreted by the radiologist and was also independently reviewed by myself. Treatment and Re-Evaluation :: Patient was given Reglan and Benadryl here. Patient is feeling better on reevaluation. Patient was advised of her findings. Patient was instructed to follow-up with her primary care physician in 5 to 7 days. Patient was also instructed to follow-up with her ENT surgeon in 5 to 7 days. Patient was instructed return if worse in any way. Patient understood and was agreeable with the plan. All questions were answered. Discharge Plan Triage Chief Complaint: General Illness ED Provider: Jori Carlos Dx/Rx/DC Orders Clinical Impression: Headache Instructions: ED Headache, Tension, ED Sinus Headache Prescriptions: No Action metoprolol tartrate 50 MG tablet 50 mg PO BID famotidine 20 MG tablet 20 mg PO BID Qty: 14 0RF ondansetron 4 MG tablet 4 mg PO Q8H PRN PRN (Reason: Nausea) Qty: 20 0RF pantoprazole [Protonix] 40 mg tablet,delayed release (DR/EC) 40 mg PO DAILY Qty: 30 0RF erythromycin 5 mg/gram (0.5 %) ointment 1 applic LEFT EYE Q6H 4 Days Qty: 3.5 0RF Rx Instructions: whatever erythromycin ophthalmic that is in stock lisinopril 10 mg tablet 10 mg PO DAILY Qty: 30 0RF levofloxacin [levofloxacin] 500 mg tablet 500 mg PO DAILY Qty: 10 0RF Primary Care Provider: BRITTANY DANIELS Referrals: BRITTANY DANIELS [Other] - 5-7 Days Disposition Disposition: Home, Self Care
[2022-10-28 21:17] VITALS: PULSE 76; RESP 18; O2SAT 100
== END 2022-10-28 21:18 | disposition home or self-care (01) ==
PROVIDERS: Emergency Provider Emergency Medicine; Visit Provider Emergency Medicine
DX: R51.9 Headache, unspecified (principal); I10 Essential (primary) hypertension; F17.210 Nicotine dependence, cigarettes, uncomplicated; K21.9 Gastro-esophageal reflux disease without esophagitis
CPT/HCPCS: 70450; 71046; 80053; 81001; 85025; 87428; 96374; 96375; 99282; A4216

== ENCOUNTER 2022-12-11 20:09 | Emergency (ER) | payer OTHER, MEDICAID, SELFPAY ==
[2022-12-11 20:11] VITALS: BP 181/90; PULSE 87; RESP 18; TEMP 36.6; O2SAT 98; BMI 40.1
--- NOTE | 2022-12-11 20:25 | CT_ITS ---
INDICATION: back pain -- hx laminectomy EXAMINATION: CT lumbar SPINE - CT Spine Lumbar W/O Contrast Injection COMPARISON: None. A radiation dose optimization technique was used for this scan. Findings: Serial CT axial images through the lumbar spine, with coronal and sagittal reformatted series. BONES: Chronic appearing mild anterior wedging of T12 vertebral body superior endplate. No evidence of lumbar spine fracture or subluxation. No concerning bony lesion or abnormal sclerosis to suggest lesion. DISCS/JOINTS: Significant disc osteophyte formation at the L4-L5 and especially L5-S1 levels with overlying posterior laminectomy change. No more than mild caudal neuroforaminal narrowing is present. Moderate multilevel lower thoracic spine facet arthropathy. SOFT TISSUES: Fatty liver. CT/Spine Lumbar without Contrast IMPRESSION: Degenerative and post procedure change as above. Lumbar spine without evidence of acute fracture. Electronically Signed: Kendall Choudhury MD at 21:38 EDT ,
--- NOTE | 2022-12-11 20:26 | ED.VIS.BACK ---
HPI History of Present Illness Chief Complaint: Back Informant: patient Narrative Narrative: Presenting worsening low back pain while lifting heavy bag prior to arrival. History of L3-L4, L4-L5, L5-S1 laminectomy [address] Crawford. Follow-up appointment next month. States she felt warm down her buttocks there is no paresthesias no incontinence of stools or urine. She has had flares since her surgery with Medrol Dosepak. Denies history of gastric ulcers or kidney injury. She has been on Percocets in the past. Stable to ambulate in. Pain worse with movement. Prior similar symptoms: Yes PFSH PFSH Medical History GERD (gastroesophageal reflux disease) HTN (hypertension) Home Medications metoprolol tartrate 50 mg tablet 50 mg PO BID 02/19/20 [History Last Taken Unknown] lisinopril 10 mg tablet 10 mg PO DAILY #30 tabs 10/08/22 [Rx Last Taken Unknown] methylprednisolone 4 mg tablets in a dose pack (Medrol (Delbert)) 4 mg PO DAILY #21 tabs 12/11/22 [Rx Last Taken Unknown] oxycodone-acetaminophen 5 mg-325 mg tablet (Percocet) 1 tab PO Q8H PRN pain 3 days #10 tabs 12/11/22 [Rx Last Taken Unknown] Allergy/AdvReac Type Severity Reaction Status Date / Time amoxicillin [Amoxicillin] Allergy Hives Verified 12/11/22 20:13 amoxicillin trihydrate Allergy Rash Verified 12/11/22 20:13 [From Trimox] codeine Allergy Itching Verified 12/11/22 20:13 Penicillins [PCN] Allergy Hives Verified 12/11/22 20:13 phenazopyridine HCl Allergy Other Verified 12/11/22 20:13 [From Pyridium] Sulfa (Sulfonamide Allergy Hives Verified 12/11/22 20:13 Antibiotics) doxycycline AdvReac Vomiting Verified 12/11/22 20:13 gabapentin [From Neurontin] AdvReac Vomiting Verified 12/11/22 20:13 hydrochlorothiazide AdvReac Hives Verified 12/11/22 20:13 titanium AdvReac Rash Verified 12/11/22 20:13 Surgical History H/O: hysterectomy History of back surgery Hx of appendectomy Hx of knee surgery Hx of sinus surgery Social History Smoking Status: Current every day smoker tobacco type: cigarettes substance use type: does not use ROS ROS ED Constitutional Constitutional ED: Denies chills, fever(s) or sweats Eyes Eyes: Denies change in vision ENT ENT ED: Denies dysphagia or sore throat Cardiovascular Cardiovascular: Denies chest pain, leg edema, palpitations or racing heartbeat Respiratory/Chest Respiratory/Chest: Denies cough, dyspnea or dyspnea on exertion Gastrointestinal Gastrointestinal: Denies abdominal pain, diarrhea, nausea or vomiting Genitourinary Genitourinary ED: Denies dysuria, hematuria or urinary frequency Musculoskeletal Musculoskeletal: Reports back pain; Denies extremity pain or neck pain Integumentary Denies rash or wounds Neurologic Neurologic: Denies headache(s), paresthesias or weakness EXAM Physical Exam Const Vital Signs: 12/11/22 20:11 Temperature 97.9 F Temperature Source Temporal Pulse Rate 87 Respiratory Rate 18 Blood Pressure 181/90 H Blood Pressure Mean 120 Pulse Ox 98 Oxygen Delivery Method Room Air Positive well nourished and well developed Constitutional Narrative: Uncomfortable, nontoxic General Appearance ED: well developed HEENT Reports moist mucous membranes normocephalic and atraumatic Eyes PERRL, EOMs intact bilaterally and conjunctivae normal General Eye ED: Yes normal appearance of both eyes Neck no lymphadenopathy and supple General: Negative for tenderness Chest Wall Chest: Negative for tenderness Resp normal respiratory effort and normal air movement Effort and Inspection: symmetric chest movement; Negative for respiratory distress Cardio regular rate, regular rhythm and no murmurs Peripheral Pulses: pulses 2+ throughout GI normal to inspection, nondistended, normoactive bowel sounds and non-tender Palpation: Negative for guarding or rebound tenderness present Back/Spine no CVA tenderness Back/Spine Narrative: Midline lower lumbar scar tender palpation of this region no step-offs. Straight leg test negative bilaterally. 1+ patellar reflex bilaterally. Extremity normal to inspection General Extremety ED: Negative for edema or tenderness General Extremity: Negative for edema Neuro oriented x3 and no sensory deficits noted Sensorium / Orientation: awake and alert Skin no rashes or lesions noted and no wounds MDM MDM MDM Narrative Medical decision making narrative: Interventions / MDM: Differential diagnosis: Strain, sciatica, lumbar fracture, hernia Diagnosis considered but do not suspect: He states no clinical cauda equina symptoms. N/A My EKG interpretation: N/A Imaging independently reviewed and interpreted by myself: Lumbar spine CT: Degenerative changes, no fractures External documents reviewed: N/A Test considered but not ordered:N/A ED course: Patient increasing back pain after lifting. History of spinal surgery. No cauda equina symptoms. Treated with Toradol and oxycodone in the ED. Lumbar spine CT degenerative changes. She is feeling much more comfortable exam. She reports previously was flares with the Medrol Dosepak would help. This was written. Additional prescription for Percocet to use as needed. She states she contacted her spine surgeon's office Dr. Crawford, she is on the waiting list to be seen sooner. She ambulated out of the department. All questions were answered. Re-evaluation: stable Disposition discussed with patient/family/significant other: Patient Case discussed with consulting clinician: N/A Radiography Diagnostic Testing: Clinical Impression(s) from Imaging Studies Lumbar Spine CT 12/11/22 20:25 IMPRESSION: Degenerative and post procedure change as above. Lumbar spine without evidence of acute fracture. Electronically Signed: Kendall Choudhury MD at 21:38 EDT , Discharge Plan Triage Chief Complaint: Back ED Provider: Jonn Gibbs Dx/Rx/DC Orders Clinical Impression: Back strain, History of laminectomy Instructions: ED Back Pain (Acute or Chronic) Prescriptions: New methylprednisolone [Medrol (Delbert)] 4 mg tablets,dose pack 4 mg PO DAILY Qty: 21 0RF oxycodone-acetaminophen [Percocet] 5-325 mg tablet 1 tab PO Q8H PRN (Reason: pain) 3 Days Qty: 10 0RF No Action metoprolol tartrate 50 MG tablet 50 mg PO BID lisinopril 10 mg tablet 10 mg PO DAILY Qty: 30 0RF Stand Alone Forms: ED Work / School Excuse Primary Care Provider: Care Physician,No Primary Referrals: NOT,DEFINED [Non-Staff] - Activity Restrictions/Additional Instructions: CT lumbar degenerative changes, no fractures. Take medication as prescribed, follow-up with your neurosurgeon. Disposition Disposition: Home, Self Care Discharge Date/Time: 12/11/22 22:26
[2022-12-11] MEDS: oxyCODONE 5 MG Tablet PO (20:32)
[2022-12-11] MEDS: Ketorolac 30 MG/ML Syringe IM (20:32)
== END 2022-12-11 22:26 | disposition home or self-care (01) ==
PROVIDERS: Emergency Provider Emergency Medicine; Visit Provider Emergency Medicine
DX: S39.012A Strain of muscle, fascia and tendon of lower back, initial encounter (principal); F17.210 Nicotine dependence, cigarettes, uncomplicated; I10 Essential (primary) hypertension; K21.9 Gastro-esophageal reflux disease without esophagitis; X50.0XXA Overexertion from strenuous movement or load, initial encounter; Z98.890 Other specified postprocedural states
CPT/HCPCS: 72131; 99283

== ENCOUNTER 2023-05-25 01:53 | Emergency (ER) | payer MEDICAID, SELFPAY ==
[2023-05-25 01:55] VITALS: BP 172/106; PULSE 79; RESP 14; TEMP 36.4; O2SAT 95; BMI 43.1
--- NOTE | 2023-05-25 02:20 | EX.ED.GENINJ ---
HPI History of Present Illness Chief Complaint: Nausea/Vomiting [facility] Medical History GERD (gastroesophageal reflux disease) HTN (hypertension) Home Medications metoprolol tartrate 50 mg tablet 100 mg PO BID 02/19/20 [History Last Taken Unknown] metoclopramide HCl 5 mg tablet (Reglan) 5 mg PO Q8H PRN PRN nausea and vomiting 7 days #20 tabs 05/25/23 [Rx Last Taken Unknown] omeprazole 40 mg capsule,delayed release 40 mg PO DAILY #30 caps 05/25/23 [Rx Last Taken Unknown] Allergy/AdvReac Type Severity Reaction Status Date / Time amoxicillin [Amoxicillin] Allergy Hives Verified 05/25/23 01:58 amoxicillin trihydrate Allergy Rash Verified 05/25/23 01:58 [From Trimox] codeine Allergy Itching Verified 05/25/23 01:58 Penicillins [PCN] Allergy Hives Verified 05/25/23 01:58 phenazopyridine HCl Allergy Other Verified 05/25/23 01:58 [From Pyridium] Sulfa (Sulfonamide Allergy Hives Verified 05/25/23 01:58 Antibiotics) doxycycline AdvReac Vomiting Verified 05/25/23 01:58 gabapentin [From Neurontin] AdvReac Vomiting Verified 05/25/23 01:58 hydrochlorothiazide AdvReac Hives Verified 05/25/23 01:58 titanium AdvReac Rash Verified 05/25/23 01:58 Surgical History H/O: hysterectomy History of back surgery Hx of appendectomy Hx of knee surgery Hx of sinus surgery Social History Smoking Status: Current every day smoker tobacco type: cigarettes substance use type: does not use EXAM Physical Exam Const Vital Signs: 05/25/23 01:55 Temperature 97.6 F L Temperature Source Oral Pulse Rate 79 Respiratory Rate 14 Blood Pressure 172/106 H Blood Pressure Mean 128 Pulse Ox 95 Oxygen Delivery Method Room Air MDM MDM MDM Narrative Medical decision making narrative: HISTORY OF PRESENT ILLNESS: 39 female here with concern for abdominal pain and nausea vomiting. She states she has several days of abdominal pain. Was seen several days ago for right upper quadrant abdominal pain and negative work-up at that time. States since then she has been vomiting. Notes severe abdominal pain that is diffuse. No urinary complaints, no vaginal complaints, no melena or hematochezia. REVIEW OF SYSTEMS: Pertinent positives: Abdominal pain nausea vomiting Pertinent negatives: Fever, chest pain, loss of consciousness. PHYSICAL EXAM: Nursing triage notes reviewed, Vital signs reviewed Constitutional: please see mdm HENT: MMM Eyes: Pupils equal round and reactive to light, Extraocular muscles intact Neck: No stridor, no JVD, full neck ROM Lungs: Clear to auscultation, No wheezing or rales. No increased work of breathing, no conversational dyspnea, no accessory muscle use, no nasal flaring. No respiratory distress noted Heart: Regular rate and rhythm, No murmurs, No rubs and No gallops, 2+ distal pulses (radial, femoral, posterior tibial) in all extremities Abdomen: Soft, there is no tenderness, rigidity, rebound or guarding, no obvious peritoneal signs, no palpable pulsatile abdominal masses, no auscultated abdominal bruit : No CVAT Extremities: No edema Neuro: No focal neurological deficits, cranial nerves II through XII intact, 5/5 strength in all extremities. Intact sensation to light touch in all extremities, 2+ reflexes bilateral patella tendons. Normal gait. No ataxia. Skin: No rash or lesions noted MEDICAL DECISION MAKING: Chief Complaint: Abdominal pain nausea vomiting External records reviewed: Imaging reviewed: CT scan from November 2021 shows no abnormality. Right upper quadrant ultrasound from 05/17/2023 shows diffuse hepatic steatosis but no evidence of acute cholecystitis. CBC at that time had a leukocytosis of 12.6 Factors affecting care: GERD, hypertension, peptic ulcer disease Social determinants of health: none History obtained from others: Patient's significant other Consults: none [facility] Narrative: Patient was hypertensive otherwise hemodynamically stable afebrile and nontoxic-appearing. Abdominal exam diffuse TTP but no obvious peritoneal signs. I considered the following differential diagnosis: AAA, small bowel obstruction, abdominal perforation, appendicitis, pancreatitis, hepatobiliary pathology (acute cholecystitis), mesenteric ischemia, pathology (ie nephrolithiasis, pyelonephritis). ALL IMAGES (IF OBTAINED) HAVE BEEN PERSONALLY REVIEWED AND INTERPRETED BY MYSELF. CBC with leukocytosis 13.6 uptrending slightly from prior study, no anemia, no thrombocytopenia Given report of peptic ulcers concern about perforation. Obtain a CT scan and other labs to further elucidate the etiology of the patient's complaints. CMP without evidence of acute kidney injury, significant electrolyte abnormality, anion gap, no evidence hepatobiliary pathology. Lipase is wnl indicating no pancreatic inflammation. Urinalysis shows no evidence of urinary inflammation suggestive of UTI Urine test is negative The amalgamation the patient's labs images fail to reveal any evidence of life-limiting etiology. Patient given oral antiemetics and close GI follow-up. The patient and/or family, caregivers express understanding. The patient and/or family, caregivers agrees with the plan. Shared decision making: I will have a discussion with the patient and or visitors regarding risk/benefits of further testing or admission. They will be made aware of of the risk/benefits inherent in this decision they will be given the opportunity to voice understanding. Total critical care time today provided was at least 0 minutes. This excludes separately billable procedures. Critical care time (if documented) is secondary to the patient having high probability of clinically significant/life threatening deterioration in the patient's condition which required my urgent intervention. Impression: 1. Abdominal pain 2. Nausea vomiting 3. Leukocytosis Dispo: Discharge Lab Data Labs: Laboratory Results - last 24 hr 05/25/23 05/25/23 02:38 02:40 WBC 13.6 H RBC 5.44 H Hgb 15.2 H Hct 47.8 H MCV 87.9 MCH 27.9 MCHC 31.8 L RDW Std Deviation 43.8 RDW Coeff of Darío 13.8 Plt Count 394 MPV 10.0 Immature Gran % (Auto) 0.200 Neut % (Auto) 52.9 Lymph % (Auto) 38.6 [place] % (Auto) 5.0 Eos % (Auto) 2.6 Baso % (Auto) 0.7 Absolute Neuts (auto) 7.2 Absolute Lymphs (auto) 5.26 H Nucleated RBC % 0 Sodium 140 Potassium 4.0 Chloride 108 H Carbon Dioxide 26.0 Anion Gap 6 BUN 19 H Creatinine 0.88 Estim Creat Clear Calc 88.81 Est GFR (MDRD) Af Amer 91 Est GFR (MDRD) Non-Af 75 BUN/Creatinine Ratio 21.5 H Glucose 95 Calcium 9.0 Total Bilirubin 0.30 Direct Bilirubin 0.09 AST 21 ALT 37 Alkaline Phosphatase 97 Total Protein 8.3 H Albumin 3.8 Globulin 4.5 H Lipase 48 Urine Color Yellow Urine Clarity Clear Urine pH 7.0 Ur Specific Delphi 1.015 Urine Protein 100 H Urine Glucose (UA) Normal Urine Ketones Negative Urine Occult Blood 10 H Urine Nitrite Negative Urine Bilirubin Negative Urine Urobilinogen Normal Ur Leukocyte Esterase 25 H Urine RBC 0-5 SEEN Urine WBC 0-5 SEEN Ur Squamous Epith Cells 5-10 SEEN Urine Bacteria 2+ Urine Mucus 0 SEEN Urine Test Negative Radiography Diagnostic Testing: Clinical Impression(s) from Imaging Studies Abdomen/Pelvis CT 05/25/23 02:21 IMPRESSION: No acute findings. Electronically Signed: Irma Lake MD at 4:03 EDT , Discharge Plan Triage Chief Complaint: Nausea/Vomiting ED Provider: Dex Corea Dx/Rx/DC Orders Instructions: ED Vomiting (Adult) Prescriptions: New metoclopramide HCl [Reglan] 5 mg tablet 5 mg PO Q8H PRN PRN (Reason: nausea and vomiting) 7 Days Qty: 20 0RF omeprazole 40 mg capsule,delayed release(DR/EC) 40 mg PO DAILY Qty: 30 0RF No Action metoprolol tartrate 50 MG tablet 100 mg PO BID Primary Care Provider: Pako Diane Referrals: FriendTeodoro, DO [Med Staff - Active Staff] - Care Physician,No Primary [Non-Staff] - Activity Restrictions/Additional Instructions: Thank you for trusting us with your care today! Please take Tylenol (2 pills, 650 mg), ibuprofen (2 pills, 400 mg) every 6 hours as needed for pain and fever control. Please take Reglan as needed for nausea and abdominal pain. Please begin taking omeprazole daily. Please return to the emergency department if your symptoms change or worsen. Please follow with your p gastroenterology for further outpatient evaluation and management. Disposition Disposition: Home, Self Care
--- NOTE | 2023-05-25 02:21 | CT_ITS ---
EXAM: CT Abdomen And Pelvis W/ Contrast Injection HISTORY: Abdominal pain nausea vomiting PT DX WITH ULCERS LAST WEEK,ABD PAIN WITH NAUSEA AND VOMITING NOW HX:GERD,HTN SURGERY:APPY,LAMINECTOMY,HERNIA REPAIR,JARED TECHNIQUE: Routine protocol CT abdomen pelvis. IV Contrast: IV 100mL Isovue-300 . Oral Contrast: without. Sagittal and coronal images were reconstructed. RADIATION DOSAGE (If Supplied By Facility): CTDIvol = ( 18.95 ) mGy, DLP = ( 1290.08 ) mGycm Individualized dose optimization techniques were used for this CT. COMPARISON: CT abdomen and pelvis 12/08/2021. LIMITATIONS: None. FINDINGS: LOWER CHEST: Unremarkable. LIVER: Fatty infiltration. GALLBLADDER/BILE DUCTS: Unremarkable. PANCREAS: Unremarkable. SPLEEN: Unremarkable. ADRENAL GLANDS: Unremarkable. KIDNEYS / URETERS: Unremarkable. BOWEL / MESENTERY: Unremarkable. No bowel obstruction. APPENDIX: Not identified. Surgically absent. PERITONEUM: No free air. No free fluid. VESSELS: Abdominal aorta is normal caliber. RETROPERITONEUM: Unremarkable. REPRODUCTIVE ORGANS: Uterus not identified. BLADDER: Unremarkable. ABDOMINAL WALL: Unremarkable. BONES: Degenerative changes in the lumbar spine. OTHER: None. CT/Abdomen/Pelvis W IV Cont ONLY IMPRESSION: No acute findings. Electronically Signed: Irma Lake MD at 4:03 EDT ,
[2023-05-25] MEDS: Ondansetron 4 MG/2 ML Vial IV (02:37)
[2023-05-25] MEDS: Famotidine 200 MG/20 ML MDV 20 MG in 0.9% Normal Saline (Pres. free 8 ML 300 MG IV (02:37)
[2023-05-25] MEDS: 0.9% Normal Saline (1000mL) 1,000 ML 1000 ML IV (02:37)
[2023-05-25] MEDS: Morphine 4 MG/ML Syringe IV (02:37)
[2023-05-25 02:47] LABS: Absolute Lymphocyte Count 5.26 X10^3/uL (0.83-4.51); Absolute Neutrophil Count 7.2 X10^3/uL (2.0-7.7); Basophil% 0.7 % (0-1); Eosinophil# 0.36 X10^3/uL; Eosinophils% 2.6 % (0-5); Hematocrit 47.8 % (37-47); Hemoglobin 15.2 g/dL (12.0-15.0); Lymphocyte # 5.26 X10^3/ul (0.83-4.51); Lymphocyte % 38.6 % (19-41); Mean Corp Hgb Conc 31.8 g/dL (32-36); Mean Corpuscular Hgb 27.9 pg (27.0-32.0); Mean Corpuscular Volume 87.9 fL (81-99); Monocyte# 0.68 X10^3/uL; NRBC Flagged by Analyzer 0 % (0-5); Neutrophil % 52.9 % (47-70); POSITIVE DIFFERENTIAL YES; Platelet Count 394 K/mm3 (150-450); RBC Distribution Width CV 13.8 % (11.6-14.6); RBC Distribution Width SD 43.8 fl (35.1-43.9); Red Blood Count 5.44 M/mm3 (4.2-5.4); White Blood Count 13.6 K/mm3 (4.4-11.0)
[2023-05-25 02:47] LABS: Mucous, Urine 0 SEEN /hpf (<or=2+)
[2023-05-25 02:48] LABS: Differential Indicated SCAN CRITERIA MET
[2023-05-25 02:48] LABS: Color, Urine Yellow (Yellow); Glucose, Dipstick Normal (Normal); Ketone-Dipstick Negative (Negative); Leukocyte Esterase-Dipstick 25 /ul (Negative); Nitrite-Dipstick Negative (Negative); Occult Blood-Urine 10 /ul (Negative); Protein-Dipstick 100 mg/dl (Negative); Specific Gravity, Urine 1.015 (1.002-1.030); Urine Bilirubin Dipstick Negative (Negative); Urine Clarity Clear (Clear); Urine Urobilinogen Normal (Normal)
[2023-05-25 02:50] LABS: Internal QC Validated? YES +Cl - CLEAR BKGD; Pregnancy, Urine Negative Negative
[2023-05-25 02:55] LABS: Bacteria 2+ /hpf (None Seen); Red Blood Cells-Urine 0-5 SEEN /hpf (0-5); Squamous Epithelial Cells - UA 5-10 SEEN /hpf (5-10); White Blood Cells 0-5 SEEN /hpf (0-5)
[2023-05-25 03:04] LABS: AST(SGOT) 21 U/L (15-37); Alanine Aminotransfer ALT/SGPT 37 U/L (13-56); Albumin, Serum 3.8 g/dL (3.2-5.0); Alkaline Phosphatase 97 U/L (45-117); Anion Gap 6 (5-15); BUN 19 mg/dL (7-18); BUN/Creat Ratio 21.5 RATIO (10-20); Bilirubin, Direct 0.09 mg/dL (0.00-0.30); Chloride 108 mmol/L (98-107); Creatinine, Serum 0.88 mg/dL (0.55-1.02); EST Glomerular Filtration Rate 75 mL/min (>60); Est Glom Filt Rate - Afr Amer 91 mL/min (>60); Estimated Creatinine Clearance 88.81 ml/min; Globulin 4.5 g/dL (2.2-4.2); Glucose 95 mg/dL (74-106); Lipase 48 U/L (13-75); Protein, Total 8.3 g/dL (6.4-8.2); Sodium Level 140 mmol/L (136-145)
[2023-05-25 04:51] VITALS: BP 132/75; PULSE 81; RESP 18; O2SAT 99
== END 2023-05-25 04:52 | disposition home or self-care (01) ==
PROVIDERS: Emergency Provider Emergency Medicine; Visit Provider Emergency Medicine
DX: R10.9 Unspecified abdominal pain (principal); I10 Essential (primary) hypertension; F17.210 Nicotine dependence, cigarettes, uncomplicated; D72.829 Elevated white blood cell count, unspecified; R11.2 Nausea with vomiting, unspecified; Z79.899 Other long term (current) drug therapy; Z90.710 Acquired absence of both cervix and uterus; Z90.49 Acquired absence of other specified parts of digestive tract
CPT/HCPCS: 74177; 80048; 80076; 81001; 81025; 83690; 85025; 96365; 96375; 99283; J7030; Q9967; A4216; J2405; J3490

== ENCOUNTER 2023-08-01 17:07 | Emergency (ER) | payer MEDICAID, SELFPAY ==
[2023-08-01 17:08] VITALS: PULSE 97; RESP 14; TEMP 36.2; O2SAT 98; BMI 43.1
--- NOTE | 2023-08-01 17:28 | CT_ITS ---
INDICATION: Pain EXAMINATION: CT ABDOMEN AND PELVIS WITHOUT CONTRAST - CT Abdomen And Pelvis W/O Contrast Injection TECHNIQUE: Helically acquired images were obtained of the abdomen and pelvis without oral or IV contrast. A radiation dose optimization technique was used for this scan. IV Contrast dosage and agent: None. Oral contrast: None. COMPARISON: May 25, 2023. FINDINGS: LOWER CHEST: Lingular scar. No cardiomegaly or pericardial effusion. LIVER: Hepatic steatosis. No focal mass. GALLBLADDER AND BILIARY TREE: No calcified gallstones. No gallbladder distension or wall edema. No intra- or extrahepatic biliary ductal dilation. PANCREAS: No focal cystic or solid mass. SPLEEN: Normal size without focal cystic or solid mass. ADRENAL GLANDS: No nodules. KIDNEYS AND URETERS: Right renal scarring. No hydronephrosis or stone disease. PERITONEUM: No ascites or free air. No other fluid collection. BOWEL: No evidence of acute appendicitis. No stomach or bowel distension. No focal inflammatory change. LYMPH NODES: No enlarged mesenteric or retroperitoneal lymph nodes. VESSELS: Aorta is non-dilated. URINARY BLADDER: Unremarkable. REPRODUCTIVE ORGANS: No pelvic masses. Uterus is not identified. ABDOMINAL WALL: No discrete abdominal or pelvic wall hernia. BONES: No lytic or blastic abnormality. Postsurgical change at L5 posteriorly with large broad-based disc osteophyte complex L5-S1. CT/Abdomen/Pelvis without Cont IMPRESSION: No acute focal inflammatory process is definitively identified. There is no stone disease. Right renal scarring. Electronically Signed: Jase Lovell MD at 18:08 EST ,
--- NOTE | 2023-08-01 17:31 | EX.ED.DYSGE1 ---
HPI History of Present Illness Chief Complaint: Flank Pain Informant: patient Narrative Narrative: With left posterior flank pain and some pink urine. Patient states that she thinks her urine is just been a little bit different for the last maybe months. But it is hard to describe what is changed. She thinks it is less volume. But just this evening it started to get pinkish tinged and she got some left flank pain. Mild nausea but no vomiting. It is feeling a little bit better now. She does report having kidney stones when she was very young. She also tells me that she had a scan and then maybe ultrasound and then an MRI all within the past year that showed a spot on her left kidney. She had seen specialist at [facility]. She tells me that this was renal cell cancer. She states that they have not done any treatment but they are just watching it until it causes a problem. But she has not had pain or bleeding with this before. [facility] Medical History GERD (gastroesophageal reflux disease) HTN (hypertension) Home Medications metoprolol tartrate 50 mg tablet 100 mg PO BID 02/19/20 [History Last Taken Unknown] Allergy/AdvReac Type Severity Reaction Status Date / Time amoxicillin [Amoxicillin] Allergy Hives Verified 08/01/23 17:10 amoxicillin trihydrate Allergy Rash Verified 08/01/23 17:10 [From Trimox] codeine Allergy Itching Verified 08/01/23 17:10 Penicillins [PCN] Allergy Hives Verified 08/01/23 17:10 phenazopyridine HCl Allergy Other Verified 08/01/23 17:10 [From Pyridium] Sulfa (Sulfonamide Allergy Hives Verified 08/01/23 17:10 Antibiotics) doxycycline AdvReac Vomiting Verified 08/01/23 17:10 gabapentin [From Neurontin] AdvReac Vomiting Verified 08/01/23 17:10 hydrochlorothiazide AdvReac Hives Verified 08/01/23 17:10 titanium AdvReac Rash Verified 08/01/23 17:10 Surgical History H/O: hysterectomy History of back surgery Hx of appendectomy Hx of knee surgery Hx of sinus surgery Social History Smoking Status: Current every day smoker tobacco type: cigarettes substance use type: does not use ROS ROS ED ROS Narrative A complete review of systems was performed and is negative except as documented in the history of present illness. Some specific details below. Constitutional: No recent fevers or chills. No malaise. ENT: No difficulty swallowing. No swelling. No pain. Urgent. CV: No chest pain or palpitations. Respiratory: No dyspnea. No hemoptysis. No difficulty taking breaths. GI: Nausea but no vomiting or diarrhea. No anterior abdominal pain. She states the pain does not radiate around to the front. : See history of present illness. Musculoskeletal: No recent trauma. No pains. Does report that she has chronic back pain and has had back surgery but this feels nothing like it and that her back is not hurting. It is all the left posterior flank area. Skin: No rash. Nondiaphoretic. Neuro: No weakness or numbness. Endocrine: No polyuria or polydipsia. EXAM Physical Exam Narrative Exam Narrative: CONSTITUTIONAL: Patient is nontoxic in appearance. The patient looks comfortable. HEENT: No notable trauma. Mucous membranes moist. EYES: No conjunctival injection. No proptosis. No pallor. CARDIOVASCULAR: Regular rate. Regular rhythm. No notable murmur. No JVD. RESPIRATORY: No respiratory distress. Breathing is unlabored. No wheezes. No rhonchi. No rales. No pain with a deep breath. GASTROINTESTINAL: Not distended. Bowel sounds are normal. No tenderness. No guarding. No rebound. No palpable mass. No bruit. GENITOURINARY: No tenderness over the bladder. No soft touch tenderness but she does have mild CVA tenderness with firmer palpation on the left. No skin changes. MUSCULOSKELETAL: Atraumatic. No peripheral edema. No cord. No tenderness along the deep venous system. No asymmetry. NEUROLOGICAL: Patient is alert and appropriate. No focal deficit noted. SKIN: No noted rashes. No diaphoresis. PSYCHIATRIC: Patient is calm. Mood is appropriate. Const Vital Signs: 08/01/23 17:08 Temperature 97.2 F L Temperature Source Temporal Pulse Rate 97 Respiratory Rate 14 Pulse Ox 98 Oxygen Delivery Method Room Air MDM MDM MDM Narrative Medical decision making narrative: Patient CBC shows mild elevation of white count at 14.6 but she has had this in the past. Hemoglobin platelets are normal. Electrolytes show no marked abnormalities. Her glucose is up a bit at 140 and we discussed this and the importance of follow-up and diet. Patient's urine shows increased epithelial cells but really no significant white cells or red cells. No sign of infection. My independent interpretation of her CT of the abdomen shows no sign of stone or mass. Final reading shows some renal scarring on the right but no other acute process. Patient is feeling better. She will follow-up with her primary physician. Lab Data Labs: Laboratory Results - last 24 hr 08/01/23 08/01/23 17:35 17:40 WBC 14.6 H RBC 5.16 Hgb 14.5 Hct 45.5 MCV 88.2 MCH 28.1 MCHC 31.9 L RDW Std Deviation 44.8 H RDW Coeff of [place]ío 13.9 Plt Count 399 MPV 9.9 Immature Gran % (Auto) 0.300 Neut % (Auto) 63.6 Lymph % (Auto) 29.6 [place] % (Auto) 3.7 Eos % (Auto) 2.3 Baso % (Auto) 0.5 Absolute Neuts (auto) 9.2 H Absolute Lymphs (auto) 4.31 Nucleated RBC % 0 Sodium 140 Potassium 3.8 Chloride 109 H Carbon Dioxide 28.0 Anion Gap 3 L BUN 16 Creatinine 0.96 Estim Creat Clear Calc 84.24 Est GFR (MDRD) Af Amer 83 Est GFR (MDRD) Non-Af 68 BUN/Creatinine Ratio 16.6 Glucose 140 H Calcium 9.7 Urine Color Yellow Urine Clarity Clear Urine pH 6.0 Ur Specific [place] 1.025 Urine Protein 500 H Urine Glucose (UA) Normal Urine Ketones Negative Urine Occult Blood 25 H Urine Nitrite Negative Urine Bilirubin Negative Urine Urobilinogen Normal Ur Leukocyte Esterase 25 H Urine RBC 0 SEEN Urine WBC 0-5 SEEN Ur Squamous Epith Cells 5-10 SEEN Urine Bacteria 1+ Urine Mucus 0 SEEN Radiography Diagnostic Testing: Clinical Impression(s) from Imaging Studies Abdomen/Pelvis CT 08/01/23 17:28 IMPRESSION: No acute focal inflammatory process is definitively identified. There is no stone disease. Right renal scarring. Electronically Signed: Jase Lovell MD at 18:08 EST , Discharge Plan Triage Chief Complaint: Flank Pain ED Provider: Juni Lambert Dx/Rx/DC Orders Clinical Impression: Acute left flank pain, Hx of hematuria Instructions: ED Flank Pain, Uncertain Cause Prescriptions: No Action metoprolol tartrate 50 MG tablet 100 mg PO BID Primary Care Provider: Pako Diane Referrals: Pako Diane DO [Primary Care Provider] - 3-5 Days Disposition Disposition: Home, Self Care
[2023-08-01 17:42] LABS: Absolute Lymphocyte Count 4.31 X10^3/uL (0.83-4.51); Absolute Neutrophil Count 9.2 X10^3/uL (2.0-7.7); Basophil# 0.07 X10^3/uL; Basophil% 0.5 % (0-1); Eosinophil# 0.34 X10^3/uL; Eosinophils% 2.3 % (0-5); Hematocrit 45.5 % (37-47); Hemoglobin 14.5 g/dL (12.0-15.0); Lymphocyte # 4.31 X10^3/ul (0.83-4.51); Lymphocyte % 29.6 % (19-41); Mean Corp Hgb Conc 31.9 g/dL (32-36); Mean Corpuscular Hgb 28.1 pg (27.0-32.0); Mean Corpuscular Volume 88.2 fL (81-99); Mean Platelet Vol. 9.9 fl (6.2-12.0); Monocyte# 0.54 X10^3/uL; Monocyte% 3.7 % (0-10); NRBC Flagged by Analyzer 0 % (0-5); Neutrophil # 9.24 X10^3/uL (2.7-7.7); Neutrophil % 63.6 % (47-70); Platelet Count 399 K/mm3 (150-450); RBC Distribution Width CV 13.9 % (11.6-14.6); RBC Distribution Width SD 44.8 fl (35.1-43.9); Red Blood Count 5.16 M/mm3 (4.2-5.4); White Blood Count 14.6 K/mm3 (4.4-11.0)
[2023-08-01 17:46] LABS: Mucous, Urine 0 SEEN /hpf (<or=2+); Red Blood Cells-Urine 0 SEEN /hpf (0-5)
[2023-08-01 17:53] LABS: Color, Urine Yellow (Yellow); Glucose, Dipstick Normal (Normal); Ketone-Dipstick Negative (Negative); Leukocyte Esterase-Dipstick 25 /ul (Negative); Nitrite-Dipstick Negative (Negative); Occult Blood-Urine 25 /ul (Negative); Protein-Dipstick 500 mg/dl (Negative); Specific Gravity, Urine 1.025 (1.002-1.030); Urine Bilirubin Dipstick Negative (Negative); Urine Clarity Clear (Clear); Urine Urobilinogen Normal (Normal)
[2023-08-01] MEDS: Ondansetron 4 MG/2 ML Vial IV (17:56)
[2023-08-01] MEDS: 0.9% Normal Saline (1000mL) 1,000 ML 1000 ML IV (17:56)
[2023-08-01 18:02] LABS: Anion Gap 3 (5-15); BUN 16 mg/dL (7-18); BUN/Creat Ratio 16.6 RATIO (10-20); Calcium,Total 9.7 mg/dL (8.5-10.1); Chloride 109 mmol/L (98-107); Creatinine, Serum 0.96 mg/dL (0.55-1.02); EST Glomerular Filtration Rate 68 mL/min (>60); Est Glom Filt Rate - Afr Amer 83 mL/min (>60); Estimated Creatinine Clearance 84.24 ml/min; Glucose 140 mg/dL (74-106); Potassium 3.8 mmol/L (3.5-5.1); Sodium Level 140 mmol/L (136-145)
[2023-08-01 18:19] LABS: Bacteria 1+ /hpf (None Seen); Squamous Epithelial Cells - UA 5-10 SEEN /hpf (5-10); White Blood Cells 0-5 SEEN /hpf (0-5)
== END 2023-08-01 18:57 | disposition home or self-care (01) ==
PROVIDERS: Emergency Provider Emergency Medicine; Visit Provider Emergency Medicine
DX: R10.9 Unspecified abdominal pain (principal); I10 Essential (primary) hypertension; F17.210 Nicotine dependence, cigarettes, uncomplicated; Z79.899 Other long term (current) drug therapy; Z90.710 Acquired absence of both cervix and uterus; Z90.49 Acquired absence of other specified parts of digestive tract; Z87.448 Personal history of other diseases of urinary system; Z85.53 Personal history of malignant neoplasm of renal pelvis
CPT/HCPCS: 74176; 80048; 81001; 85025; 99283; J7030; A4216; J2405